=== PATIENT | male | born 1930 | race Caucasian/White ===

== ENCOUNTER 2018-01-16 23:05 | Inpatient (IN) | payer MEDICARE, OTHER ==
[~2018-01-16 23:05] MED LIST: ISOVUE-370 76%-LOCM 1 ML ONE
[2018-01-16 23:20] LABS: #Basophils 0.1 thou/uL (0.0-0.2); #Eosinphils 0.1 thou/uL (0.0-0.7); #Lymphocytes 1.8 thou/uL (1.20-3.40); #Monocytes 0.4 thou/uL (0.11-0.59); #Neutrophils 9.7 thou/uL (1.40-6.50); %Basophils 1.1 % (0.0-1.0); %Eosinophils 0.5 % (0.0-10.0); %Monocytes 3.3 % (0.0-10.0); %Neutrophils 80.1 % (42.0-75.0); Hemoglobin 14.9 g/dL (14.0-18.0); Mean Corpuscular HGB CONC 33.4 g/dL (32.0-36.0); Mean Corpuscular Volume 95.8 fl (80.0-94.0); Mean Platelet Volume 6.3 fL (7.4-10.4); Platelet Count 230 thou/uL (130-400); RBC Distribution Width 12.5 % (11.5-14.5); Red Blood Cell (RBC) Count 4.67 mill/uL (4.70-6.10); White Blood Cell (WBC) Count 12.1 thou/uL (4.8-10.8)
[2018-01-16 23:26] LABS: PTT 31.5 SEC (22.9-36.1); Prothrombin Time 13.3 SEC (12.0-14.7)
[2018-01-16 23:33] LABS: ALT (SGPT) 13 U/L (8-55); AST (SGOT) 17 U/L (5-34); Albumin 3.9 g/dL (3.4-4.8); Alkaline Phosphatase 53 U/L (40-150); Anion Gap 13 mmol/L (10-20); BUN (Urea Nitrogen) 22 mg/dL (8.4-25.7); Bilirubin, Total 0.6 mg/dL (0.2-1.2); Calc. Creatinine Clearance 0 mL/min (70-130); Calcium 8.6 mg/dL (7.8-10.44); Carbon Dioxide 24 mmol/L (23-31); Chloride 99 mmol/L (98-107); Estimated GFR-MDRD 70; Globulin 2.2 g/dL (2.4-3.5); Glucose 115 mg/dL (83-110); Potassium 3.4 mmol/L (3.5-5.1); Protein, Total 6.1 g/dL (5.8-8.1); Sodium 133 mmol/L (136-145)
[2018-01-16 23:38] LABS: CKMB 4.8 ng/mL (0-6.6); Troponin I 0.022 ng/mL (< 0.028)
[2018-01-16] MEDS ORDERED: niCARdipine 20MG In NaCl 20 MG/200 ML BAG ONE (23:50)
--- NOTE | 2018-01-16 23:56 | CT ---
CT OF THE BRAIN WITHOUT CONTRAST: 01/16/18 COMPARISON: None. HISTORY: Facial drooping and left sided weakness. Fall tonight. Patient is on blood thinners. TECHNIQUE: Multiple contiguous axial images were obtained in a CT of the brain without contrast. FINDINGS: There are scattered hypodensities in subcortical and periventricular white matter, likely secondary t o small vessel ischemic disease. No large confluent infarction is seen. There is no evidence of hydro cephalus, intracranial hemorrhage or extra-axial fluid collection. The calvarium and overlying soft tissues are unremarkable. The visualized paranasal sinuses and masto id air cells are well aerated. IMPRESSION: Small vessel ischemic disease without acute intracranial abnormality. Dr. Centeno notified of the findings at 11:21 p.m. on 01/16/18. POS: [facility]
--- NOTE | 2018-01-17 00:07 | RAD ---
SINGLE VIEW OF THE CHEST: 01/16/18 COMPARISON: None. HISTORY: Stroke. Left facial drooping and left sided weakness with slurred speech. FINDINGS: Single view of the chest shows a cardiomediastinal silhouette which is upper limits of normal in size . There is no evidence of consolidation, mass, or pleural effusion. Degenerative changes are seen in the spine. IMPRESSION: No evidence of acute cardiopulmonary disease. POS: [facility]
[2018-01-17 00:20] LABS: Acetaminophen Less than 6.0 mcg/mL (10.0-30.0); Alcohol Less than 10 mg/dL (Less than 10); Magnesium 2.1 mg/dL (1.6-2.6); Salicylate Less than 8.0 mg/dL (15.0-30.0)
--- NOTE | 2018-01-17 00:38 | CT ---
CTA OF THE NECK WITH CONTRAST CTA OF THE HEAD WITH CONTRAST CT PERFUSION OF THE HEAD/BRAIN 01/16/18 HISTORY: Facial drooping and left sided weakness. Fall tonight. Patient is on blood thinners. TECHNIQUE: 1. Multiple contiguous axial images were obtained in a CTA of the neck with contrast. Sagittal a nd coronal 3D MIP reformats were performed. 2. Multiple contiguous axial images were obtained in a CTA of the brain/head with contrast. Sagi ttal and coronal 3D MIP reformats were performed. 3. A CT perfusion was performed of the head. FINDINGS: CTA NECK: Moderate atherosclerotic disease is seen in the aorta with a small amount of atherosclerotic disease in the subclavian arteries. The bilateral common carotid artery showed no significant atherosclerotic disease. In the proximal right internal carotid artery approximately 1 cm distal to the bifurcation, there is a 6 mm area of either occlusion or severe high grade stenosis. there may be a small amount of blood flow along the anterior aspect of this areas of near complete occlusion. The more distal rig ht internal carotid artery is patent without significant atherosclerotic disease. There is a mild amount of atherosclerotic plaque in the left proximal internal carotid artery with es timated stenosis of less than 105 per NASCET criteria. The distal left cervical internal carotid radhika ry is unremarkable. Both cervical vertebral arteries are patent without significant narrowing. Mild a therosclerotic disease is seen in the mid portions of the vertebral arteries. No cervical adenopathy is seen. No mucosal abnormality is present. Degenerative changes are seen in t he spine. CTA HEAD: There is moderate to severe diffuse atherosclerotic disease in the cavernous portion of both internal carotid arteries. The intracranial internal carotid arteries show no significant atherosclerotic dis ease and branches into normal caliber anterior and middle cerebral arteries. There is no evidence of focal stenosis, occlusion or aneurysmal dilatation in the anterior circulation. The vessels in the le ft MCA distribution are more prominent than the right MCA distribution, although the vessels are stil l present on the right. Moderate atherosclerotic disease is seen in the intracranial vertebral arteries which form a normal a ppearing basilar artery. Posterior cerebral artery and cerebellar arteries are patent. There is no ev idence of focal stenosis, occlusion or aneurysmal dilatation in the posterior circulation. CT PERFUSION: In the inferior aspect of the right temporal lobe, there is increased mean transit time in decreased blood flow compared to the left. This also demonstrates increased blood volume as consistent with a l arge area of penumbra/ischemia. No other asymmetry is seen. IMPRESSION: No other asymmetry is seen. IMPRESSION: 1. There appears to be an area of occlusion in the proximal right internal carotid artery versus near complete occlusion. Flow is still seen in the distal aspect of the right internal carotid arter y. 2. There is no evidence of thrombosis intracranially, although the blood vessels are less promin ent in the right cerebral hemisphere compared to the left. 3. There is an abnormality on the perfusion exam and the inferior aspect of the right temporal l obe. This represents an area of ischemia/penumbra and may represent ischemia secondary to relatively diminished blood flow secondary to the abnormality in the internal carotid artery. Dr. Centeno notified of the findings at 11:46 p.m. on 01/16/18. POS: [facility]
[2018-01-17] MEDS ORDERED: Heparin 10,000 UNITS/1 ML VIAL ONE ×2 (00:46)
[2018-01-17 01:02] LABS: Bilirubin Negative (Negative); Blood, Urine Negative (Negative); Clarity CLEAR (Clear); Glucose, Urine (Dipstick) Negative (Negative); Leukocyte Negative (Negative); Nitrite Negative (Negative); Protein, Urine (Dipstick) Negative (Neg-Trace); Specific Gravity, Urine 1.021 (1.002-1.036); pH, Urine 7.5 (5.0-9.0)
[2018-01-17 01:09] LABS: Amphetamine Not Detected (NotDetected); Barbiturates Screen Not Detected (NotDetected); Benzodiazepine Screen Not Detected (NotDetected); Cocaine Metabolite Screen Not Detected (NotDetected); Medtox Control Line Valid? VALID (VALID); Medtox Reader # READER 1; Methadone Not Detected (NotDetected); Methamphetamine Not Detected (NotDetected); Opiate Screen Not Detected (NotDetected); Oxycodone Screen Not Detected (NotDetected); Phencyclidine (PCP) Not Detected (NotDetected); THC/Cannabinoid Screen Not Detected (NotDetected); Tricyclic Screen Not Detected (NotDetected)
[2018-01-17] MEDS ORDERED: Mag-Al 1200 mg/1200 mg/30 ML UDCUP PO PRN (01:44)
[2018-01-17] MEDS ORDERED: niCARdipine 20MG in NaCl 200 ML BAG IVPB PRN (01:44)
[2018-01-17] MEDS ORDERED: Acetaminophen 325 MG TAB PO PRN (01:44)
[2018-01-17] MEDS ORDERED: Labetalol HCl 100 MG/20 ML VIAL ONE (01:46)
[2018-01-17 02:16] LABS: #Basophils 0.1 thou/uL (0.0-0.2); #Lymphocytes 0.8 thou/uL (1.20-3.40); #Monocytes 0.3 thou/uL (0.11-0.59); #Neutrophils 9.9 thou/uL (1.40-6.50); %Basophils 0.5 % (0.0-1.0); %Eosinophils 0.1 % (0.0-10.0); %Lymphocytes 7.5 % (21.0-51.0); %Monocytes 2.7 % (0.0-10.0); %Neutrophils 89.2 % (42.0-75.0); Hemoglobin 15.1 g/dL (14.0-18.0); Mean Corpuscular HGB CONC 34.3 g/dL (32.0-36.0); Mean Corpuscular Hemoglobin 32.6 pg (27.0-31.0); Mean Corpuscular Volume 94.9 fl (80.0-94.0); Mean Platelet Volume 6.3 fL (7.4-10.4); Platelet Count 221 thou/uL (130-400); RBC Distribution Width 12.4 % (11.5-14.5); Red Blood Cell (RBC) Count 4.65 mill/uL (4.70-6.10); White Blood Cell (WBC) Count 11.1 thou/uL (4.8-10.8)
[2018-01-17 02:28] LABS: Anion Gap 15 mmol/L (10-20); BUN (Urea Nitrogen) 20 mg/dL (8.4-25.7); Calc. Creatinine Clearance 0 mL/min (70-130); Calcium 8.6 mg/dL (7.8-10.44); Carbon Dioxide 20 mmol/L (23-31); Chloride 98 mmol/L (98-107); Estimated GFR-MDRD 85; Glucose 145 mg/dL (83-110); Potassium 3.3 mmol/L (3.5-5.1); Sodium 130 mmol/L (136-145)
[2018-01-17] MEDS: Labetalol HCl 100 MG/20 ML VIAL SLOW IVP PRN (02:41)
[2018-01-17] MEDS ORDERED: Chloraseptic Spray 180 ml Bottle PO PRN (04:33)
[2018-01-17] MEDS ORDERED: Diabetic Tussin 200 MG/10 ML UDCUP PO PRN (04:33)
[2018-01-17] MEDS ORDERED: Eucerin (Mineral Oil/Petrolatum,White) 30 gm Jar TOP PRN (04:33)
[2018-01-17] MEDS ORDERED: Sodium Chloride 0.65% Nasal 44 ML BOT EA NARE PRN (04:33)
[2018-01-17] MEDS ORDERED: Loratadine 10 MG TAB PO PRN (04:33)
[2018-01-17] MEDS ORDERED: Senokot 8.6 MG TAB PO PRN (04:33)
[2018-01-17] MEDS ORDERED: Artificial Tears 18 DROP/0.9 ML EA EYE PRN (04:33)
[2018-01-17] MEDS ORDERED: Milk Of Magnesia 30 ML UDCUP PO PRN (04:33)
[2018-01-17 04:38] LABS: Cardiac Risk 3.8 (Less than 4.5)
[2018-01-17] MEDS: Sodium Chloride 0.9% 1,000 ML IV SCH ×2 (06:52→16:09)
[2018-01-17] MEDS: Famotidine/PF 20 mg/2ml Vial SLOW IVP SCH ×2 (08:40→20:54)
--- NOTE | 2018-01-17 08:55 | CT ---
PRELIMINARY REPORT/[facility]/EMERGENCY AFTER HOURS PROCEDURE: EXAM: CT Head Without Intravenous Contrast CLINICAL HISTORY: 87 years old, male; Condition or disease; Other: CVA; Patient HX: F/u CVA; S/P tpa TECHNIQUE: Axial computed tomography images of the head/brain without intravenous contrast. COMPARISON: CT Brain WO Con 2018-01-16 23:11 FINDINGS: Question faint residual contrast in the right basal ganglia images 20-21 Brain: Mild volume loss No hemorrhage. Mild white matter disease. No edema. Ventricles: Unremarkable. No ventriculomegaly. Bones/joints: Unremarkable. No acute fracture. Soft tissues: Unremarkable. Sinuses: Unremarkable as visualized. No acute sinusitis. Mastoid air cells: Unremarkable as visualized. No mastoid effusion. IMPRESSION: Question residual faint contrast in the right basal ganglia region No definite acute intracranial hemorrhage noted Thank you for allowing us to participate in the care of your patient. Dictated and Authenticated by: Vaughn Davis MD 01/17/2018 5:54 AM Central Time ([place] & [place]) FINAL REPORT: HEAD CT WITHOUT CONTRAST: Date: 01-17-18 Comparison: 01-16-18 History: Left sided weakness with facial droop, re-evaluate for possible acute infarction. FINDINGS: I agree with the preliminary [facility] report dictated by Dr. Vaughn Davis. Imaged paranasal sinuses/masto id air cells are well aerated. There is atherosclerotic calcification of the cavernous carotid arteri es and distal vertebral arteries. There is no displaced calvarial fracture. No intracranial hemorrhage, midline shift, or mass effect. Stable mild diffuse cerebral volume loss a nd prominence of the CSF containing spaces. IMPRESSION: No intracranial hemorrhage or large territorial infarction. Follow up imaging advised as clinically w arranted. POS: [facility]
[2018-01-17] MEDS ORDERED: Prevnar 13-Val Conj/PF 0.5 ML SYRINGE IM ONE (09:00)
[2018-01-17] MEDS ORDERED: FLU VACC TS2017-18 (>65YR) 0.5 ML SYRINGE IM ONE (09:00)
[2018-01-17] MEDS: niCARdipine HCl 25 MG in Sodium Chloride 0.9% 250 ML 240 ML IVPB PRN ×2 (10:42→20:52)
--- NOTE | 2018-01-17 14:55 | PRG ---
DATE OF SERVICE: 01/17/2018 SUBJECTIVE: Mr. Troncoso is an 87-year-old gentleman that presented with abrupt-onset dense hemiparesis and dysarthria. He had a noncontrast head CT performed in the ER, which was negative for hemorrhage . Subsequent to that, he had an intracranial CT angiogram performed, which was negative for occlusiv e disease. A CT angiogram of the neck, however, revealed a short segment occlusion versus short segm ent high-grade near occlusion at the takeoff the right internal carotid artery. The CT perfusion bienvenido dy suggested an area of ischemia with potentially salvageable brain. All the distal vasculature from the short segment occlusion fills normally. The patient has started receiving TPA. My plan is to bring him to the labor economist to image the carotid artery. If thrombus is present, we will perform a thrombectomy. Patient is an elderly and has highl y tortuous anatomy, therefore, I do have concerns about access. I discussed this with the family as well. Risks, benefits, and alternatives of the procedure discussed with the family and informed cons ent was provided.
[2018-01-17] MEDS ORDERED: Iopamidol 370 76% 100 ML VIAL ONE (15:09)
[2018-01-17] MEDS ORDERED: Potassium Chloride 40 MEQ in Sodium Chloride 0.9% 500 ML IVPB SCH (15:30)
--- NOTE | 2018-01-17 16:07 | CON ---
DATE OF CONSULTATION: 01/17/2018 ADMITTING PHYSICIAN: Dr. Andrea Crain. CONSULTED TEAM: Hospitalist Carmen Hernandez team for Medical management. HISTORY OF PRESENT ILLNESS: This is an 87-year-old male with history obtained from the nurse as the patient is nonverbal. History also obtained from ER documentation. The patient supposedly presented to the hospital with a left- sided facial droop, left-sided deficits. Per family, immediately prior to sleeping at night, post-dinner time, patient was brought to the hospital and was found to have left-sided facial droop as well as left-sided weakness and deficits. The patient had a CT scan of the brain done, which showed small vessel ischemic disease without any acute intracranial abnormalities. The patient also had a CT angiography performed, which showed occlusion of the proximal RCA, right internal carotid artery as well as almost complete occlusion of the right internal carotid artery. The patient was taken to the OR by Neurosurgery. Procedure report is pending. Patient at this point in time admitted to Neurosurgery team. Consult placed for Internal Medicine for medical management. No family at bedside. History again obtained from ER records and the nursing notes. ALLERGIES: No known drug allergies. PAST MEDICAL HISTORY: Per document review, positive for TIA, hyperlipidemia, hypertension, and coronary artery disease. SOCIAL HISTORY: Unavailable. PAST SURGICAL HISTORY: Unavailable. REVIEW OF SYSTEMS: Not possible given the patient's condition. MEDICATIONS: See MAR. PHYSICAL EXAMINATION: VITAL SIGNS: Blood pressure 157/60, O2 saturation 96% on 2 liters nasal cannula , respiratory rate of 23, heart rate of 83, temperature of 98. GENERAL: The patient is lying in bed, in no acute distress, resting comfortably. HEENT: Left-sided facial droop noted. Pupils equal, round, react to light and accommodation. Oral cavity moist and pink. NECK: Supple, mobile, nontender thyroid noted. Right-sided or left-sided carotid bruits not auscultated. LUNGS: Clear to auscultation bilaterally. No increase in AP diameter. Aerating well. CARDIOVASCULAR: Regular rate and rhythm. S1, S2, 2/6 systolic ejection murmur. ABDOMEN: Positive bowel sounds, soft, nontender. EXTREMITIES: 2+ peripheral pulses. No edema noted. NEUROLOGIC: Left-sided facial droop noted. Left-sided lower extremity immobile , right-sided lower extremity were rigid. Patient withdraws the pain, does not respond to tactile or verbal stimuli. LABORATORY DATA: CBC: Hemoglobin 15, WBC count of 11, platelet count of 221, hematocrit of 44. BMP: Sodium 130, potassium 3.3, chloride 98, bicarbonate 20 , creatinine 0.85, BUN of 20, glucose 145, triglycerides 50, cholesterol 225, LDL 155, HDL 60. UA negative. Drug screen negative for salicylates, opioids, oxycodone, methadone, propoxyphene, amphetamine, barbiturates, tricyclics, phencyclidine, cocaine, cannabis. Plasma alcohol less than 10. ASSESSMENT: 1. Cerebrovascular accident. 2. Right-sided internal carotid artery occlusion. 3. Hyperlipidemia. 4. Hypertension. 5. Hyponatremia secondary to free water excess. 6. Hypokalemia. PLAN: At this point in time, we will replace the patient's potassium. Target systolic blood pressure range of 160-180 for now. Tomorrow, we will target range of 140-160, Neurosurgery and Neurology also following. We will provide the patient with sequential compression devices for deep venous thrombosis prophylaxis and also provide the patient with Protonix IV for gastrointestinal prophylaxis. Aeration status is currently good on 2 liters nasal cannula. We will check an A1c to evaluate for possible status of diabetes and start the patient on sliding scale if A1c above 6.5. No family at bedside. Thank you very much for this consultation. We will follow very closely with you from Internal Medicine perspective and make changes as appropriate from Internal Medicine perspective. Case and plan discussed with nurse. Again, no family available. BONY
--- NOTE | 2018-01-17 16:29 | CCL ---
CARDIAC CATH: DATE: 01/17/18. SURGEONS: Dr. Crain, no assistant manager bilingual. INDICATION: Ischemic stroke. DIAGNOSIS: Intracerebral ischemia. PROCEDURE: Cervical carotid angiogram> ANESTHESIA: Local. TECHNIQUE: The patient was brought into the angiogram suite and placed on the table in supine position. Both gr oins were prepped and draped in usual sterile fashion. 1% lidocaine was administered. A 5 [place] mi cropuncture set was used to gain access to the right common femoral artery. A 6 [place] sheath was pl aced. The 6 [place] De La O-II catheter passed over an 0.035 angled Glidewire and was advanced into the aortic arch and the right common carotid artery was selectively catheterized. An AP and lateral ang iogram was performed of the cervical carotid, which revealed the presence of a high-grade stenosis wh ich did not appear to be flow limiting. There was distal filling of the remaining portion of the int ernal carotid artery. There is no obvious thrombus present. No interventional procedure was perform ed. The procedure came to an end without complication. IMPRESSION: The patient has a high-grade stenosis that does not appear to be flow limiting at the proximal aspect of the right internal carotid artery just beyond the bifurcation. The distal vessels fill normally. The patient's vasculature is highly tortuous. POS: [facility]
[2018-01-17] MEDS: Atorvastatin Calcium 40 MG TAB PO SCH (20:53)
--- NOTE | 2018-01-17 20:55 | CON ---
DATE OF CONSULTATION: 01/17/2018 REFERRING PROVIDER: Dr. Andrea Crain. REASON FOR CONSULTATION: Acute onset of left hemiparesis, status post IV tPA. HISTORY OF PRESENT ILLNESS: Mr. Troncoso is a pleasant 87-year-old male who has been consulted for evaluation of acute-onset left-sided weakness, stroke alert was initiated on admission to the ER. He is status post IV tPA. History is obtained from patient's medical chart, as patient is unable to provide, and there are no family members present at bedside. Apparently, patient was at home, had eaten his supper and had gone to take a nap. Few minutes later, patient's found him mcc on the bed and half on the floor. He was not able to move his left side. He was also noted to have left facial droop and difficulty with talking. His speech was also slurred. He was acting confused, which prompted them to call the EMS and patient was brought to the [place] [facility]. His symptoms have been present less than 4-1/[address] head without contrast on arrival, which showed no acute intracranial abnormality. At that point, IV tPA was given. Patient also had a CT angiogram of the head and neck and has undergone cerebral arteriogram with Dr. Crain who noted a high-grade stenosis of the right ICA without any flow limitation. Per nurse who is taking care of the patient, there has not been a significant improvement in his symptoms since being admitted to the hospital. Past medical history, past surgical history, social history, family history, current medications, and allergies could not be obtained. REVIEW OF SYSTEMS: Could not be performed. PHYSICAL EXAMINATION: VITAL SIGNS: Blood pressure of 169/63, pulse of 90, temperature of 97.7, respirations are 22, O2 sats of 95% on room air. GENERAL: Obtunded, male in no apparent distress. RESPIRATORY: Clear to auscultation bilaterally. CARDIOVASCULAR: Regular rate and rhythm. NEUROLOGIC: Mental status: Patient is drowsy appearing. He responds to verbal stimuli by responding to yes and no, but does not open his eyes and does not follow any commands. Cranial nerves: Pupils are 3 mm and reactive. Face appears symmetric. There is a left hemineglect. Motor exam showed flaccid left upper and left lower extremity. He has 0/5 strength in the left upper extremity and 2-3/5 strength in the left lower extremity. Sensory: He does not withdraw to pain on the left side. He has a left hemineglect. LABORATORY DATA: Reviewed, which included CBC, CMP, lipid profile, urinalysis, and urine drug screen, and plasma alcohol level which is significant for white cell count of 11.1. Sodium 130, potassium of 3.3, glucose of 145. CPK of 203, total cholesterol 225, LDL of 155, HDL of 60, triglycerides of 50, otherwise unremarkable. IMAGING STUDIES: CT head without contrast was reviewed, which showed no acute intracranial abnormality. CT angiogram of the head and neck and CT perfusion scan were reviewed, which showed occlusion or near occlusion of proximal right ICA. Cerebral arteriogram results were reviewed, which showed high-grade stenosis without any flow limitation in the right proximal ICA. IMPRESSION: 1. Acute right middle cerebral artery distribution ischemic infarct. 2. Left hemiparesis converted to #1. 3. Right internal carotid artery stenosis. 4. Hypertension. ASSESSMENT AND PLAN: Mr. Troncoso is a pleasant 87-year-old male who presented with an acute onset of left-sided weakness and dysarthria and left facial droop. On his exam, he is noted to have flaccid left upper and left lower extremity with very dysarthric speech. His symptoms are characteristic of right MCA distribution ischemic infarct. I will recommend obtaining MRI brain without contrast in the morning. Once he finishes 24 hours post-tPA, he is able to be transferred to the stroke unit for further care. I will recommend consulting PT, OT, speech therapy. We will initiate antiplatelet therapy 24-hour post-tPA. Continue supportive care. Continue current medical management. Thank you for consultation. BONY
[2018-01-18] MEDS: Sodium Chloride 0.9% 1,000 ML IV SCH ×2 (03:09→15:35)
--- NOTE | 2018-01-18 04:30 | CON ---
DATE OF CONSULTATION: 01/18/2018 Mr. Troncoso is an 87-year-old female. He presented with left hemiparesis. He received t-PA. He underwent a CT angiogram with Dr. Crain. He has noticed a high grade right internal carotid stenosis, but no flow limitation. He has not really improved much since admission to the hospital. He is a poor historian. PAST MEDICAL HISTORY: 1. Remarkable for TIA. 2. History of lipid disorder. 3. Hypertension. 4. History of coronary disease. Reviewing the old PCI records, he has not been admitted here. FAMILY HISTORY: Not obtainable from him. REVIEW OF SYSTEMS: Not obtainable. SOCIAL HISTORY: Not obtainable. PHYSICAL EXAMINATION: GENERAL: He awakens, but he mumbles mostly, he says ouch. VITAL SIGNS: He is afebrile, blood pressure 134/75, heart rates 91. He is on nasal cannula 2 liters a minute, oximetry is in the high 90s. HEENT: His pupils are reactive. EXTREMITIES: His left upper extremity is fairly rigid, but it drops to the bed if I lift it up. His left lower extremity moves intermittently. His right side appears to be unremarkable, although he has multiple abrasions and ecchymoses in both upper extremities and has multiple bruises on his chest wall. LUNGS: Clear. HEART: Regular rhythm. S1 and S2 are normal. Grade 2/6 systolic murmur. ABDOMEN: Soft and nontender. No guarding, no masses. LABORATORY: White count 11.1, hemoglobin 15.1, platelets 221. Sodium 130, potassium 3.3, chloride 98, bicarbonate 20, BUN 20, creatinine 0.85. IMPRESSION: 1. Cerebrovascular accident. 2. Advanced age with the clinical appearance of extreme deconditioning. PLAN: Continue current care. His code status definitely needs to be addressed. This is a 50 minutes consult greater than 50% of time was spent coordinating care on the unit. BONY
[2018-01-18 04:36] LABS: #Lymphocytes 1.2 thou/uL (1.20-3.40); #Monocytes 0.4 thou/uL (0.11-0.59); #Neutrophils 8.7 thou/uL (1.40-6.50); %Basophils 0.3 % (0.0-1.0); %Lymphocytes 11.6 % (21.0-51.0); %Monocytes 3.8 % (0.0-10.0); %Neutrophils 84.3 % (42.0-75.0); Hemoglobin 14.8 g/dL (14.0-18.0); Mean Corpuscular HGB CONC 34.9 g/dL (32.0-36.0); Mean Corpuscular Volume 94.5 fl (80.0-94.0); Platelet Count 234 thou/uL (130-400); RBC Distribution Width 12.5 % (11.5-14.5); Red Blood Cell (RBC) Count 4.47 mill/uL (4.70-6.10); White Blood Cell (WBC) Count 10.3 thou/uL (4.8-10.8)
[2018-01-18 05:02] LABS: ALT (SGPT) 23 U/L (8-55); AST (SGOT) 66 U/L (5-34); Albumin 3.7 g/dL (3.4-4.8); Alkaline Phosphatase 52 U/L (40-150); Anion Gap 12 mmol/L (10-20); BUN (Urea Nitrogen) 27 mg/dL (8.4-25.7); Bilirubin, Total 1.8 mg/dL (0.2-1.2); Calc. Creatinine Clearance 57 mL/min (70-130); Calcium 8.5 mg/dL (7.8-10.44); Carbon Dioxide 18 mmol/L (23-31); Cardiac Risk 3.8 (Less than 4.5); Chloride 108 mmol/L (98-107); Cholesterol 207 mg/dl (< 200 Desired); Estimated GFR-MDRD 88; Globulin 2.3 g/dL (2.4-3.5); Glucose 143 mg/dL (83-110); HDL Cholesterol 55 mg/dL (>60 Neg Risk); LDL Cholesterol, Calculated 133 mg/dL; Potassium 3.3 mmol/L (3.5-5.1); Sodium 135 mmol/L (136-145); Triglycerides 94 mg/dL (Less than 150)
[2018-01-18] MEDS: niCARdipine HCl 25 MG in Sodium Chloride 0.9% 250 ML 240 ML IVPB PRN (05:14)
[2018-01-18 05:19] LABS: Syphilis Antibody Nonreactive (Nonreactive); Syphilis Antibody Index 0.05 S/CO (<1.00 Non-Reactive)
[2018-01-18] MEDS: Enoxaparin Sodium 30 MG/0.3 ML SYRINGE SC SCH (09:34)
[2018-01-18] MEDS: Aspirin 325 mg Enteric Coated Tablet PO SCH (09:34)
[2018-01-18] MEDS: Famotidine/PF 20 mg/2ml Vial SLOW IVP SCH (09:34)
[2018-01-18] MEDS: Aspirin 300 MG Suppository PR SCH (09:41)
[2018-01-18 13:34] LABS: Hemoglobin A1c 5.2 % (4.0-6.0)
--- NOTE | 2018-01-18 13:39 | PDOC.PN ---
- Subjective Encounter Start Date: 01/18/18 Encounter Start Time: 13:37 Patient seen and examined, no new issues, patient now DNR/DNI, no family at bedside - Objective Resuscitation Status: Resuscitation Status DNR:Do Not Resuscitate Vital Signs & Weight: Vital Signs (12 hours) Temp Pulse Resp Pulse Ox 01/18/18 11:00 98.2 F 01/18/18 07:58 98.2 F 88 24 H 96 01/18/18 07:22 98 01/18/18 07:00 98.2 F 01/18/18 04:00 98.3 F Weight Admit Weight 145 lb Weight 141 lb 12.116 oz Most Recent Monitor Data Heart Rate from ECG 94 NIBP 142/88 NIBP BP-Mean 94 Respiration from ECG 20 SpO2 98 I&O: 01/17/18 01/18/18 01/19/18 06:59 06:59 06:59 Intake Total 341 2899 Output Total 0 1 Balance 341 2898 Result Diagrams: 01/18/18 03:45 01/18/18 03:45 Phys Exam - Physical Examination Constitutional: NAD HEENT: PERRLA, moist MMs, sclera anicteric left sided facial droop Neck: no nodes, no JVD, supple Respiratory: no wheezing, no rales, no rhonchi Cardiovascular: RRR, no significant murmur, no rub Gastrointestinal: soft, non-tender, no distention Musculoskeletal: no edema, pulses present patient not talking much, left lower extremity immobile left sided deficits Dx/Plan (1) CVA (cerebral vascular accident) Code(s): I63.9 - CEREBRAL INFARCTION, UNSPECIFIED Status: Acute (2) HTN (hypertension) Code(s): I10 - ESSENTIAL (PRIMARY) HYPERTENSION Status: Acute (3) Aphasia Code(s): R47.01 - APHASIA Status: Acute (4) Weakness Code(s): R53.1 - WEAKNESS Status: Acute - Plan * Agree with DNR/DNI status * repeat CT in AM or MRI to confirm if stroke present or not * patient appears to have poor prognosis, neurology and neuro surgery also following * will await image studies once available * labs in AM * BP stable * pain control * no family at bedside
[2018-01-18] MEDS: Labetalol HCl 100 MG/20 ML VIAL SLOW IVP PRN (18:12)
--- NOTE | 2018-01-18 19:12 | PRG ---
DATE OF SERVICE: 01/18/2018 SUBJECTIVE: Mr. Troncoso will awaken. He is extremely hard of hearing. I met with his and his daughter at the bedside and had a lengthy discussion with them. Apparently, he has actually been quite functional from a cognitive standpoint leading up to this. He was excited about vending machine attendant's baseball season starting. Today, when his vending machine attendant came to the room, he reminded his vending machine attendant not to have two Monday services because last , they only had 11 at 1 service and 14 at the other service, so I do not think there are any issues of dementia here leading up to this. He still has left hemiplegia. Bedside swallowing evaluation was suggestive of him tolerating pureed and thickened food. OBJECTIVE: VITAL SIGNS: His vital signs have been stable. His heart rates in 80s, blood pressure 160/81, respiratory 26, oximetry is 99. LUNGS: Clear currently. HEART: Regular rhythm. ABDOMEN: Soft. LABORATORY DATA: White count is 10.3, hemoglobin 14.8, platelets 234,000. Sodium 135, potassium 3.3, chloride 108, bicarbonate 18, BUN 27, creatinine 0.8 , bilirubin is 1.8, AST 66, ALT is 23. Globulin is 2.3. IMPRESSION: Thrombotic cerebrovascular, probably needs another noncontrast CT to better define the CT of the cerebrovascular accident. An MRI was contemplated, but per the neurologist's note, but I do not think he will hold still for an MRI and I had certainly do not want to sedate this 87- year-old man to get an MRI for curiosity sake. He needs to stay in the Critical Care Unit. The family wants no tube feedings. The daughter and firmly they dont even want a Dobbhoff tube. They want him to be a do not resuscitate status, but they also want to begin working on placement hoping that he will gradually improve to a functional port. He has never wanted to be in a correction or kept in some type of long- term care facility. [facility]
[2018-01-18] MEDS ORDERED: Famotidine 40 MG/4 ML VIAL SLOW IVP SCH (22:30)
[2018-01-18] MEDS: Atorvastatin Calcium 40 MG TAB PO SCH (22:41)
[2018-01-19 04:13] LABS: #Basophils 0.1 thou/uL (0.0-0.2); #Lymphocytes 1.2 thou/uL (1.20-3.40); #Monocytes 0.4 thou/uL (0.11-0.59); #Neutrophils 7.4 thou/uL (1.40-6.50); %Basophils 0.7 % (0.0-1.0); %Eosinophils 0.3 % (0.0-10.0); %Lymphocytes 12.9 % (21.0-51.0); %Monocytes 4.2 % (0.0-10.0); %Neutrophils 81.9 % (42.0-75.0); Hemoglobin 13.5 g/dL (14.0-18.0); Mean Corpuscular Hemoglobin 33.4 pg (27.0-31.0); Mean Corpuscular Volume 95.3 fl (80.0-94.0); Mean Platelet Volume 6.8 fL (7.4-10.4); Platelet Count 195 thou/uL (130-400); RBC Distribution Width 12.5 % (11.5-14.5); Red Blood Cell (RBC) Count 4.05 mill/uL (4.70-6.10)
[2018-01-19 04:50] LABS: Anion Gap 11 mmol/L (10-20); BUN (Urea Nitrogen) 24 mg/dL (8.4-25.7); Calc. Creatinine Clearance 67 mL/min (70-130); Calcium 8.3 mg/dL (7.8-10.44); Carbon Dioxide 21 mmol/L (23-31); Chloride 109 mmol/L (98-107); Estimated GFR-MDRD Greater than 90; Glucose 99 mg/dL (83-110); Potassium 3.2 mmol/L (3.5-5.1); Sodium 138 mmol/L (136-145)
--- NOTE | 2018-01-19 08:34 | CT ---
PRELIMINARY REPORT/[facility]/EMERGENCY AFTER HOURS PROCEDURE: EXAM: CT Head Without Intravenous Contrast CLINICAL HISTORY: Acute Stroke; S/P tpa 2 days ago TECHNIQUE: Axial computed tomography images of the head/brain without intravenous contrast. COMPARISON: CT Brain WO Con 2018-01-17 05:05 FINDINGS: Brain: Interval development of acute right sided infarcts involving the high, posterior lateral parietal reg ion, caudate head, glbous pallidus, and putamen. No acute left sided infarct visualized. No hemorrhag e. No appreciable mass effect. There is global and diffuse parenchymal volume loss. There are scattered foci of decreased attenuatio n in the periventricular and subcortical white matter, nonspecific, but most consistent with chronic small vessel ischemic changes in patient of this age. Ventricles / cisterns / extra-axial spaces: There is no hydrocephalus, midline shift, or acute extra-axial fluid collection. There is no sulcal e ffacement. Sinuses: No findings of acute sinusitis or suspicious sinus mass. Bone: No acute fracture or displacement. Impression: Acute multifocal right sided infarcts are now visible. No hemorrhage. Thank you for allowing us to participate in the care of your patient. Dictated and Authenticated by: Julisa Orellana MD 01/19/2018 6:11 AM Central Time ([place] & [place]) FINAL REPORT HEAD CT NONCONTRAST: Date: 01/19/18 FINDINGS/IMPRESSION: I agree with the above provided preliminary interpretation from [facility]. Multifocal recent infarctions involving the right cerebral hemisphere which involve the deep may nuc lei, as well as parietal and temporoparietal region of the right cerebral hemisphere. Subtle involvem ent also suggested at the right frontal lobe. POS: [facility]
[2018-01-19] MEDS ORDERED: Famotidine 40 MG/4 ML VIAL SLOW IVP SCH (09:00)
[2018-01-19] MEDS: Sodium Chloride 0.9% 1,000 ML IV SCH (09:02)
[2018-01-19] MEDS: Enoxaparin Sodium 30 MG/0.3 ML SYRINGE SC SCH (09:02)
[2018-01-19] MEDS: Aspirin 325 mg Enteric Coated Tablet PO SCH (09:02)
[2018-01-19] MEDS: Aspirin 300 MG Suppository PR SCH (09:02)
[2018-01-19] MEDS: Famotidine/PF 20 mg/2ml Vial SLOW IVP SCH (09:30)
[2018-01-19] MEDS ORDERED: Potassium Chloride 40 MEQ in Sodium Chloride 0.9% 250 ML 250 ML IVPB SCH ×2 (11:00→15:00)
--- NOTE | 2018-01-19 14:22 | PDOC.PN ---
- Subjective Encounter Start Date: 01/19/18 Encounter Start Time: 14:20 Patient seen and examined, daughter at bedside, all questions answered, no new issues. - Objective Resuscitation Status: Resuscitation Status DNR:Do Not Resuscitate Vital Signs & Weight: Vital Signs (12 hours) Temp Pulse Ox 01/19/18 12:00 97.9 F 01/19/18 08:38 100 01/19/18 07:00 98.1 F 01/19/18 04:00 99.1 F Weight Admit Weight 145 lb Weight 149 lb 4.047 oz Most Recent Monitor Data Heart Rate from ECG 87 NIBP 137/87 NIBP BP-Mean 100 Respiration from ECG 21 SpO2 97 I&O: 01/18/18 01/19/18 01/20/18 06:59 06:59 06:59 Intake Total 2899 1715 Output Total 1 800 2 Balance 2898 915 -2 Result Diagrams: 01/19/18 04:01 01/19/18 04:01 Phys Exam - Physical Examination Constitutional: NAD HEENT: PERRLA, moist MMs, sclera anicteric very hard of hearing Neck: no nodes, no JVD, supple Respiratory: no wheezing, no rales, no rhonchi Cardiovascular: RRR S1 and S2, 2/6 THOR Gastrointestinal: soft, non-tender, no distention Musculoskeletal: no edema, pulses present AAO X person only, Left sided residual defects Dx/Plan (1) CVA (cerebral vascular accident) Code(s): I63.9 - CEREBRAL INFARCTION, UNSPECIFIED Status: Acute (2) HTN (hypertension) Code(s): I10 - ESSENTIAL (PRIMARY) HYPERTENSION Status: Acute (3) Aphasia Code(s): R47.01 - APHASIA Status: Acute (4) Weakness Code(s): R53.1 - WEAKNESS Status: Acute - Plan * DNR/DNI, transfer to stroke * after a long discussion with daughter, she is agreeable to talk to palliative/ hospice care to gather more treatment options for the patient, she is currently NOT making the patient hospice but is interested in obtaining information * PEG tube currently being discussed between family, will await their decision * continue current plan of care with no changes * case and plan d/w patient's daughter at length, she understands and agrees with this plan
--- NOTE | 2018-01-19 15:33 | PRG ---
DATE OF SERVICE: 01/19/2018 SERVICE: Pulmonary Medicine. INTERVAL HISTORY: The patient is doing fine from a respiratory standpoint. He remains on room air. He seems to be clearing his airway for the most part. He takes a very small amount of p.o. Otherwi se, there has been no interval change to his condition. The family is trying to decide on whether or not to pursue PEG tube placement. He is following some simple commands. He will spontaneously move the right side of his body and his left leg. His left arm does not really move. He does have some withdrawal from noxious stimuli there however. PHYSICAL EXAMINATION: VITAL SIGNS: Afebrile, pulse is 87, blood pressure 137/87, respirations 21, saturation 97% on room a ir. GENERAL: The patient is somnolent. He remains encephalopathic. HEENT: Normocephalic, atraumatic. Sclerae are white, conjunctivae pink. Oral and nasal mucosa is m oist without lesions. LUNGS: Decent air entry. Minimal rhonchi are present. No crackles or wheezing are appreciated. HEART: Normal rate, regular. ABDOMEN: Soft, nontender, nondistended. Bowel sounds are positive. MUSCULOSKELETAL: No cyanosis or clubbing. There is no pitting in the bilateral lower extremities. NEUROLOGIC: Grossly nonfocal. LABORATORY DATA: WBC 9.0, hemoglobin 13.5, platelets 195,000. Potassium 3.2. Basic metabolic profi le is otherwise unremarkable. Urinalysis is unremarkable. Urine drug screen is negative. Syphilis is nonreactive. IMAGING: CT of the brain demonstrates acute multifocal right-sided infarct without any obvious hemor rhage. ASSESSMENT: 1. Cerebrovascular accident on the right, multifocal. 2. Debility secondary to stroke. PLAN: The patient is hemodynamically and neurologically stable since he has been in the hospital. A s such, we will proceed with transitioning him over to the stroke unit. He is at increased risk for aspiration related disease, but has been made a DNI/DNR. Hopefully, he will continue to improve some neurologic function moving forward. We will need to determine whether or not feeding tube is indica kelsey in this patient. Potassium will be replaced today.
[2018-01-19] MEDS: Labetalol HCl 100 MG/20 ML VIAL SLOW IVP PRN (20:11)
[2018-01-19] MEDS: Atorvastatin Calcium 40 MG TAB PO SCH (20:19)
[2018-01-20] MEDS: Sodium Chloride 0.9% 1,000 ML IV SCH ×3 (02:30→15:49)
[2018-01-20] MEDS: Labetalol HCl 100 MG/20 ML VIAL SLOW IVP PRN ×3 (03:33→15:45)
[2018-01-20] MEDS: Aspirin 300 MG Suppository PR SCH (09:28)
[2018-01-20] MEDS: Aspirin 325 mg Enteric Coated Tablet PO SCH (09:28)
[2018-01-20] MEDS: Enoxaparin Sodium 30 MG/0.3 ML SYRINGE SC SCH (09:29)
[2018-01-20] MEDS: hydrALAZINE 20 MG/ML VIAL SLOW IVP PRN (09:34)
--- NOTE | 2018-01-20 13:47 | PDOC.PN ---
- Subjective Encounter Start Date: 01/20/18 Encounter Start Time: 13:45 Patient seen and examined, family at bedside, no changes in status per nursing staff, all questions answered. - Objective Resuscitation Status: Resuscitation Status DNR:Do Not Resuscitate Vital Signs & Weight: Vital Signs (12 hours) Temp Pulse Pulse Resp BP BP BP 01/20/18 12:39 147/67 H 01/20/18 11:57 97.8 F 92 20 214/88 H 01/20/18 11:20 84 01/20/18 10:14 87 169/81 H 01/20/18 09:34 84 01/20/18 09:16 01/20/18 08:00 99.3 F 84 20 182/102 H 01/20/18 04:00 98.2 F 99 22 H 140/104 H 01/20/18 03:33 99 199/103 H Pulse Ox 01/20/18 12:39 01/20/18 11:57 95 01/20/18 11:20 01/20/18 10:14 01/20/18 09:34 01/20/18 09:16 98 01/20/18 08:00 98 01/20/18 04:00 90 L 01/20/18 03:33 Weight Admit Weight 145 lb Weight 148 lb Most Recent Monitor Data Heart Rate from ECG 83 NIBP 153/100 NIBP BP-Mean 111 Respiration from ECG 26 SpO2 100 I&O: 01/19/18 01/20/18 01/21/18 06:59 06:59 06:59 Intake Total 1715 1963 Output Total 800 3 Balance 915 1960 Result Diagrams: 01/19/18 04:01 01/19/18 04:01 Phys Exam - Physical Examination Constitutional: NAD HEENT: PERRLA, moist MMs, sclera anicteric left sided facial droop Neck: no nodes, no JVD Respiratory: no wheezing, no rales Cardiovascular: RRR, no significant murmur, no rub Gastrointestinal: soft, non-tender, no distention Musculoskeletal: pulses present, edema present (trace) left sided weakness, responds to loud verbal stimuli Dx/Plan (1) CVA (cerebral vascular accident) Code(s): I63.9 - CEREBRAL INFARCTION, UNSPECIFIED Status: Acute (2) HTN (hypertension) Code(s): I10 - ESSENTIAL (PRIMARY) HYPERTENSION Status: Acute (3) Aphasia Code(s): R47.01 - APHASIA Status: Acute (4) Weakness Code(s): R53.1 - WEAKNESS Status: Acute - Plan * Family deciding between PEG placement vs hospice care, state they will have a decision by tomorrow * continue current plan of care otherwise with no changes * case and plan d/w patient's family at length, they understand and agree with this plan * Will follow with you and make changes as appropriate from a renal perspective
--- NOTE | 2018-01-20 20:13 | PRG ---
DATE OF SERVICE: 01/20/2018 SERVICE: Pulmonary Medicine. INTERVAL HISTORY: The patient is doing okay from a respiratory standpoint. His breathing is unlabor ed. There were no events reported. There has been no significant change to his neurologic status. PHYSICAL EXAMINATION: VITAL SIGNS: Afebrile, pulse 86, blood pressure 178/79, respirations 20, saturation 96% on room air. GENERAL: The patient is somnolent. He wakes up, but he has dense hemiplegia. HEENT: Normocephalic, atraumatic. Sclerae are white, conjunctivae pink. Oral and nasal mucosa is m oist without lesions. LUNGS: Decent air entry. There is no prolonged expiratory phase. Rhonchi are present. No wheezing or crackles are appreciated. HEART: Normal rate, regular. ABDOMEN: Soft, nontender, nondistended. Bowel sounds are positive. MUSCULOSKELETAL: No cyanosis or clubbing. There is no pitting in the bilateral lower extremities. LABORATORY DATA: WBC 9.0, hemoglobin 13.5, platelets 195,000. Potassium 3.2. Basic metabolic profi le is otherwise unremarkable. ASSESSMENT: 1. Cerebrovascular accident on the right, multifocal. 2. Severe debility secondary to stroke. 3. Severe protein calorie malnutrition. 4. Hypokalemia. PLAN: I will provide the patient a dose of potassium. We will check magnesium with phosphorus tomor row morning. The family is deciding about whether or not to proceed with PEG tube versus transition over to comfort care only. Pulmonary or Critical Care will continue to follow, intermittently during this hospital stay. Please call if the patient has a more abrupt decompensation in his breathing an d the family wants to be more aggressive.
[2018-01-20] MEDS: Potassium Chloride 40 MEQ in Sodium Chloride 0.9% 250 ML 250 ML IVPB SCH (20:24)
[2018-01-20] MEDS: Atorvastatin Calcium 40 MG TAB PO SCH (20:25)
[2018-01-21] MEDS ORDERED: Metoprolol Tartrate 25 MG TAB PO SCH (00:15)
[2018-01-21] MEDS: Potassium Chloride 40 MEQ in Sodium Chloride 0.9% 250 ML 250 ML IVPB SCH (00:38)
[2018-01-21] MEDS: Labetalol HCl 100 MG/20 ML VIAL SLOW IVP PRN ×4 (05:11→23:39)
[2018-01-21 06:16] LABS: Anion Gap 13 mmol/L (10-20); BUN (Urea Nitrogen) 23 mg/dL (8.4-25.7); Calc. Creatinine Clearance 75 mL/min (70-130); Calcium 8.2 mg/dL (7.8-10.44); Carbon Dioxide 19 mmol/L (23-31); Chloride 112 mmol/L (98-107); Estimated GFR-MDRD Greater than 90; Glucose 80 mg/dL (83-110); Magnesium 2.2 mg/dL (1.6-2.6); Phosphorus 2.2 mg/dL (2.3-4.7); Potassium 3.6 mmol/L (3.5-5.1); Sodium 140 mmol/L (136-145)
[2018-01-21] MEDS: Sodium Chloride 0.9% 1,000 ML IV SCH ×3 (07:21→19:35)
[2018-01-21] MEDS: Aspirin 325 mg Enteric Coated Tablet PO SCH ×2 (08:44→09:54)
[2018-01-21] MEDS: Enoxaparin Sodium 30 MG/0.3 ML SYRINGE SC SCH ×2 (08:44→11:54)
[2018-01-21] MEDS: Metoprolol Tartrate 25 MG TAB PO SCH ×3 (08:44→22:08)
[2018-01-21] MEDS: Aspirin 300 MG Suppository PR SCH (09:26)
--- NOTE | 2018-01-21 10:37 | RAD ---
CHEST 1 VIEW: HISTORY: Altered mental status. COMPARISON: Chest radiograph 01/16/18. FINDINGS: New right basilar airspace opacity somewhat linear in appearance is present. Lungs are hypoinflated. No pneumothorax. No large effusion. IMPRESSION: No acute osseous abnormality. Old left-sided rib fractures. IMPRESSION: New linear opacity in the right lung base suggestive of atelectasis. Followup can be obtained. The remainder of the findings are unchanged. POS: [facility]
--- NOTE | 2018-01-21 12:06 | PDOC.PN ---
- Subjective Encounter Start Date: 01/21/18 Encounter Start Time: 12:04 Patient seen and examined, no changes in clinical status for now, family at bedside, all questions answered. - Objective Resuscitation Status: Resuscitation Status DNR:Do Not Resuscitate Vital Signs & Weight: Vital Signs (12 hours) Temp Pulse Resp BP BP Pulse Ox 01/21/18 10:34 153/89 H 01/21/18 08:45 73 01/21/18 08:00 98.5 F 73 16 178/84 H 95 01/21/18 05:11 88 179/95 H 01/21/18 03:02 98.5 F 88 20 179/95 H 95 Weight Admit Weight 145 lb Weight 144 lb 3 oz Most Recent Monitor Data Heart Rate from ECG 83 NIBP 153/100 NIBP BP-Mean 111 Respiration from ECG 26 SpO2 100 I&O: 01/20/18 01/21/18 01/22/18 06:59 06:59 06:59 Intake Total 1963 Output Total 3 Balance 1960 Result Diagrams: 01/19/18 04:01 01/21/18 05:02 Phys Exam - Physical Examination Constitutional: NAD HEENT: PERRLA, moist MMs, sclera anicteric Neck: no nodes, no JVD coarse breath sounds Cardiovascular: RRR, no significant murmur Gastrointestinal: soft, non-tender, no distention Musculoskeletal: no edema, pulses present Dx/Plan (1) CVA (cerebral vascular accident) Code(s): I63.9 - CEREBRAL INFARCTION, UNSPECIFIED Status: Acute (2) HTN (hypertension) Code(s): I10 - ESSENTIAL (PRIMARY) HYPERTENSION Status: Acute (3) Aphasia Code(s): R47.01 - APHASIA Status: Acute (4) Weakness Code(s): R53.1 - WEAKNESS Status: Acute - Plan * Patient remains DNR/DNI * Family state they will decide by tmrw if they want PEG placement or hospice * no changes in plan of care for now * will apply a clonidine patch for high BP * swallowing remains a major issue * case and plan d/w patient's family member at bedside, nurse present in room, family understands and agrees with above plan
[2018-01-21] MEDS ORDERED: Fleet Enema 133 ML BOT PR SCH (18:15)
[2018-01-21] MEDS ORDERED: Potassium Phosphate 30 MMOL in Sodium Chloride 0.9% 500 ML IVPB SCH (18:30)
--- NOTE | 2018-01-21 18:32 | PRG ---
DATE OF SERVICE: 01/21/2018 SERVICE: Pulmonary Medicine. INTERVAL HISTORY: The patient is doing good from a respiratory standpoint. His biggest complaint is abdominal distention and pain. It feels like he needs to have a bowel movement. Otherwise, there h as been no interval change to his condition. His family was feeding him at bedside. He coughs with nearly every bite that he takes. I have told him that this would suggest that he is aspirating. I w ould like for them to back way off on how much p.o. they are giving him. I do not want him to provid e him with any solid consistencies for the time being. He will need to work with Speech Pathology ve ry closely. PHYSICAL EXAMINATION: VITAL SIGNS: Afebrile, pulse 76, blood pressure 186/104, respirations 16, saturation 95% on room air . GENERAL: The patient is awake, alert, in no apparent distress. LUNGS: Decent air entry. There is no prolonged expiratory phase or wheezing. HEART: Normal rate, regular. ABDOMEN: Soft, nontender, nondistended. Bowel sounds are positive. MUSCULOSKELETAL: No cyanosis or clubbing. No pitting in the bilateral lower extremities. LABORATORY DATA: Phosphorus 2.2, magnesium 2.2, potassium 3.6. Basic metabolic profile is otherwise unremarkable. Sodium is up trending gently. IMAGING: Chest x-ray demonstrates right lung atelectasis and inflammatory changes, small lung volume s. ASSESSMENT: 1. Cerebrovascular accident on the right, multifocal. 2. Severe debility secondary to stroke. 3. Oropharyngeal dysphagia. 4. Aspiration pneumonitis. 5. Severe protein calorie malnutrition. 6. Hypokalemia. PLAN: We will give the patient a dose of potassium phosphate. The patient's family is trying to dec brett whether or not to pursue PEG tube moving forward. Pulmonary or Critical Care will continue to fo llow. The patient is at extraordinarily high risk of developing infectious process in the lung becau se he has a hard time swallowing or protecting his airway. Thankfully, he does have a decent cough. If he spikes a fever, empiric antibiotics directed at lung pathology should be considered.
[2018-01-21] MEDS: Atorvastatin Calcium 20 MG TAB PO SCH (22:06)
[2018-01-21] MEDS: Sodium Chloride 0.45% 1,000 ML IV SCH (22:07)
[2018-01-22 06:53] LABS: Anion Gap 12 mmol/L (10-20); BUN (Urea Nitrogen) 25 mg/dL (8.4-25.7); Calc. Creatinine Clearance 75 mL/min (70-130); Calcium 7.9 mg/dL (7.8-10.44); Carbon Dioxide 19 mmol/L (23-31); Chloride 113 mmol/L (98-107); Estimated GFR-MDRD Greater than 90; Glucose 92 mg/dL (83-110); Phosphorus 4.5 mg/dL (2.3-4.7); Potassium 3.7 mmol/L (3.5-5.1); Sodium 140 mmol/L (136-145)
[2018-01-22] MEDS: Labetalol HCl 100 MG/20 ML VIAL SLOW IVP PRN (06:55)
[2018-01-22] MEDS: Sodium Chloride 0.45% 1,000 ML IV SCH ×2 (08:27→14:12)
--- NOTE | 2018-01-22 09:04 | RAD ---
LEFT HAND 3 VIEWS: INDICATION: Fall, injury. FINDINGS: There is a postoperative plate and screw fixation traversing the distal forearm carpus and proximal l eft hand partially imaged. There is prominent osseous hypertrophy and degenerative change of the wri st and base of hand. There is a radiopaque linear density projecting at the soft tissues interposed between the 2nd and 3rd MCP joints suspicious for a foreign body, age indeterminate on the basis of t his exam. There is also a linear radiopaque density overlying the medial aspect of the carpus. No acute fracture is seen. There is vascular calcification. IMPRESSION: 1. Foreign body suspected interposed between the 2nd and 3rd rays, age indeterminate. Suspicious fo r foreign body is not provided on the clinical request. Recommend correlation with the history and p hysical exam and, as necessary, imaging followup. 2. There is an additional radiopaque thin layer density overlying the medial aspect of the carpus ad jacent surgical hardware. 3. Prominent arthropathy of the left wrist and base of hand. POS: [facility]
[2018-01-22] MEDS: Enoxaparin Sodium 30 MG/0.3 ML SYRINGE SC SCH (09:30)
[2018-01-22] MEDS: Metoprolol Tartrate 25 MG TAB PO SCH ×2 (09:30→22:27)
[2018-01-22] MEDS: Aspirin 325 mg Enteric Coated Tablet PO SCH (09:30)
[2018-01-22] MEDS: Aspirin 300 MG Suppository PR SCH (09:30)
[2018-01-22] MEDS: hydrALAZINE 20 MG/ML VIAL SLOW IVP PRN (15:52)
[2018-01-22] MEDS: Ketorolac Tromethamine 30 MG/ML VIAL IVP PRN (17:40)
--- NOTE | 2018-01-22 19:49 | PDOC.PN ---
- Subjective Encounter Start Date: 01/22/18 Encounter Start Time: 19:45 Subjective: f/u for acute R MCA territorial ischemic CVA with L hemiparesis, dysphagia -: with planned PEG tube placement in am. c/o LLE calf pain, tenderness -: no trauma but initally admitted 01/17/18. - Objective Resuscitation Status: Resuscitation Status DNR:Do Not Resuscitate MAR Reviewed: Yes Vital Signs & Weight: Vital Signs (12 hours) Temp Pulse Resp BP BP BP Pulse Ox 01/22/18 19:27 98.9 F 93 24 H 165/90 H 95 01/22/18 17:17 88 176/87 H 01/22/18 15:52 82 214/98 H 01/22/18 15:46 98.2 F 82 20 214/98 H 95 01/22/18 11:53 97.4 F L 91 20 189/69 H 68 L 01/22/18 08:00 97.4 F L 107 H 20 168/81 H 96 Weight Admit Weight 145 lb Weight 160 lb 4 oz Most Recent Monitor Data Heart Rate from ECG 83 NIBP 153/100 NIBP BP-Mean 111 Respiration from ECG 26 SpO2 100 I&O: 01/21/18 01/22/18 01/23/18 06:59 06:59 06:59 Intake Total 1250 Balance 1250 Result Diagrams: 01/19/18 04:01 01/22/18 05:28 Radiology Reviewed by me: Yes (LLE sono - no DVT on limited exam, +hydrocele in L scrotum) EKG Reviewed by me: Yes (Tele - SR) Phys Exam - Physical Examination Constitutional: NAD sleepy HEENT: PERRLA, oral pharynx no lesions Neck: no JVD, supple few basilar coarse sounds Respiratory: no wheezing Cardiovascular: RRR Gastrointestinal: soft, non-tender, no distention, positive bowel sounds mild TTP L calf region Musculoskeletal: no edema, pulses present L hemiparesis, dysarthria, dysphagia Skin: normal turgor, cap refill <2 seconds Dx/Plan (1) Cerebrovascular accident (CVA) involving right middle cerebral artery territory Code(s): I63.511 - CEREB INFRC D/T UNSP OCCLS OR STENOS OF RIGHT MID CEREB ART Status: Acute Comment: ASA 325mg daily, Lipitor, stroke protocol, s/p tPa (2) Acute left hemiparesis Code(s): G81.94 - HEMIPLEGIA, UNSPECIFIED AFFECTING LEFT NONDOMINANT SIDE Status: Acute Comment: PT/OT for mobilization, likely rehab on d/c (3) Dysphagia Code(s): R13.10 - DYSPHAGIA, UNSPECIFIED Status: Acute Qualifiers: Dysphagia type: oropharyngeal phase Qualified Code(s): R13.12 - Dysphagia, oropharyngeal phase Comment: Plan for EGD in am, NPO currently (4) Stenosis of right carotid artery Code(s): I65.21 - OCCLUSION AND STENOSIS OF RIGHT CAROTID ARTERY Status: Chronic Comment: ASA, Lipitor, Metoprolol, no acute surgical intervention (5) HTN (hypertension) Code(s): I10 - ESSENTIAL (PRIMARY) HYPERTENSION Status: Chronic Qualifiers: Hypertension type: essential hypertension Qualified Code(s): I10 - Essential (primary) hypertension Comment: Labile, Clonidine patch, Hydralazine prn, Metoprolol (6) Pain of left lower extremity Code(s): M79.605 - PAIN IN LEFT LEG Status: Acute Comment: ? etiology, DVT r /o with LE doppler, pain control with Toradol, monitor clinically - Plan PT/OT, transition social worker, speech therapy, respiratory therapy, DVT proph w/SCDs Stable currently -: Plan for PEG insertion and TF's -: NPO currently -: Continue ASA 300mg HI -: Toradol 30mg IV q6h prn * Continue IV NS 100ml/h * AM lab: BMP
--- NOTE | 2018-01-22 20:19 | ULT ---
LEFT LOWER EXTREMITY VENOUS DUPLEX ULTRASOUND INCLUDING COLOR AND SPECTRAL DOPPLER IMAGING: HISTORY: An 87-year-old male with a history of left lower extremity pain and immobility. Exam was limited bec ause the patient was somewhat uncooperative and would not allow evaluation of the popliteal vein [place] use of patient pain. The exam was also limited because of patient motion artifact. TECHNIQUE: Exam performed from groin to ankle, except for the popliteal vein. FINDINGS: The visualized greater saphenous, common femoral, superficial femoral, profunda femoral, trifurcation , and posterior tibial vein regions demonstrate phasic flow at all levels with normal compressibility and normal augmentation. No evidence for deep venous thrombosis. There was incidentally noted with in the left scrotum to be a large, complex, cystic mass, incompletely evaluated on this study. This cystic area measures approximately 4.9 x 8.4 cm, with a separate area that measures 1.6 cm. IMPRESSION: 1. No evidence of left lower extremity deep venous thrombosis. The popliteal vein could not be eval uated because of patient positioning, but the remainder of the deep venous system is normal. 2. Abnormal cystic mass in the left scrotum, possibly a large hydrocele or other cystic mass, with o ne smaller cyst as well. If this is a clinical concern, a follow-up nonemergent complete scrotal ult rasound might be considered. POS: [facility]
[2018-01-22] MEDS: Atorvastatin Calcium 20 MG TAB PO SCH (22:26)
[2018-01-23] MEDS: hydrALAZINE 20 MG/ML VIAL SLOW IVP PRN ×2 (04:39→16:15)
[2018-01-23] MEDS: Sodium Chloride 0.45% 1,000 ML IV SCH ×4 (04:40→18:14)
[2018-01-23] MEDS: Ketorolac Tromethamine 30 MG/ML VIAL IVP PRN ×2 (04:41→22:02)
[2018-01-23] MEDS: Metoprolol Tartrate 25 MG TAB PO SCH (05:49)
[2018-01-23 05:57] LABS: Anion Gap 11 mmol/L (10-20); BUN (Urea Nitrogen) 23 mg/dL (8.4-25.7); Calc. Creatinine Clearance 81 mL/min (70-130); Calcium 8.4 mg/dL (7.8-10.44); Carbon Dioxide 20 mmol/L (23-31); Chloride 109 mmol/L (98-107); Estimated GFR-MDRD Greater than 90; Glucose 88 mg/dL (83-110); Potassium 3.4 mmol/L (3.5-5.1); Sodium 137 mmol/L (136-145)
[2018-01-23] MEDS: Aspirin 325 mg Enteric Coated Tablet PO SCH (07:00)
[2018-01-23] MEDS: Enoxaparin Sodium 30 MG/0.3 ML SYRINGE SC SCH (07:00)
[2018-01-23 08:17] VITALS: BMI 25.0
[2018-01-23] MEDS ORDERED: cloNIDine 0.1mg/24 Hour PATCH TD SCH (09:00)
--- NOTE | 2018-01-23 10:39 | CON ---
DATE OF CONSULTATION: 01/22/2018 REFERRING PHYSICIAN: Dr. Freddie White. REASON FOR CONSULTATION: Evaluate the patient for endoscopic gastrostomy tube placement. HISTORY OF PRESENT ILLNESSES: Mr. Ramesh Troncoso is an 87-year-old male hospitalized with acute CVA and some weakness. The patient is eating very little. The patient was seen in the room al renato with the patient's two daughters. The daughter tells me that when he was feeding very slowly, he is able to swallow, but the intake is very inadequate. At times, he also coughs and chokes during m ealtime. The patient comes for EGD and gastrostomy tube placement. I was asked by Dr. White to see t he patient for possible endoscopic gastrostomy placement. As per the patient's family, he is very [address] of hearing. However, he does respond to questions by mumbling something. I was unable to underst and what he is trying to tell me, but apparently daughter has been communicating with the patient. S ni admission, the patient has been seen by Pulmonary Medicine and Neurology Service. MEDICAL ILLNESSES: 1. Acute CVA. 2. Hypertension. 3. Hyperlipidemia. 4. History of coronary artery disease. ALLERGIES: None. SOCIAL HISTORY: Unobtainable. MEDICATIONS: List reviewed. SURGICAL HISTORY AND FAMILY HISTORY: Not able to be obtained. PHYSICAL EXAMINATION: GENERAL: Reveals a fragile looking elderly male, appears sleepy, but is arousable. He is difficult to understand. VITAL SIGNS: Afebrile, pulse is 82, blood pressure is 189/69. HEENT: Conjunctivae clear. CARDIOVASCULAR: First and second sounds normal. LUNGS: Clear to auscultation. ABDOMEN: Soft to palpate. Abdomen is nondistended. Abdomen is nontender. No organomegaly or mass. He does have a left-sided weakness. LABORATORY DATA: Dated on 01/19/2018 shows WBC 9000, hemoglobin 13.5, hematocrit 38.6, MCV 94.3, [place] count 195,000, polymorphs 81, lymphocytes 12. Serum chemistries shows sodium 140, potassium 3. 7, chloride 113, bicarbonate 19, BUN is 25, creatinine 0.62. CLINICAL IMPRESSION: An 87-year-old with acute cerebrovascular accident, has difficulty sw allowing. The patient's oral intake is very poor. I had a long talk with the patient's daughter and explained the procedure. Apparently, Dr. Vickers has spoken to her, spoken to the family about the EGD and PEG tube placement. The patient and family has been spoken to reguarding procedure in detail and potential risks and benefits. The patient's family is agreeable. I will plan for EGD and PEG t ube placement done tomorrow.
[2018-01-23] MEDS ORDERED: PROPOFOL 200 MG/20 ML VIAL ONE (11:38)
[2018-01-23] MEDS ORDERED: Lidocaine 1% PF 5 ML VIAL ONE (11:38)
[2018-01-23] MEDS ORDERED: CEFAZOLIN/Water 2 GM/20 ML SYRINGE ONE (12:08)
[2018-01-23] MEDS: Aspirin 300 MG Suppository PR SCH (13:36)
--- NOTE | 2018-01-23 14:39 | OP ---
DATE OF PROCEDURE: 01/23/2018 SURGEON: Valeria Orozco M.D. OPERATIVE PROCEDURE: Esophagogastroduodenoscopy with endoscopic gastrostomy tube placement. PREOPERATIVE DIAGNOSIS: Dysphagia, status post cerebrovascular accident. POSTOPERATIVE DIAGNOSES: 1. Hiatal hernia. 2. Ulcer in the duodenal bulb, nonbleeding. 3. Placement of G-tube. PROCEDURE IN DETAIL: The patient was placed on his back and was given sedation by Anesthesia Department. The patient also has IV Ancef 2 grams before the procedure. A bite block was placed. A Pentax video gastroscope under direct vision was passed down the oropharynx, past the GE junction, into the stomach and subsequently descending duodenum. The esophageal mucosa appeared normal. No evidence of lesions seen. The GE junction, no pathology. The fundus, cardia , gastric body, gastric antrum, no pathology seen. The duodenal bulb showed an ulceration measuring approximately 1 cm. The scope was withdrawn back to stomach. The G-tube site was marked by transillumination from within. This was confirmed by finger pressure. The site was surgically prepped and cleaned. This site was anesthetized with 1% Xylocaine infiltration. Over the site, a size 16 Angiocath was advanced into the stomach. Through the Angiocath, a guidewire was advanced into the stomach. The wire was grasped with snare and put outside the mouth. entry, a 0.75-1 cm sized cut was made in the skin and subcutaneous tissue. A gastrostomy tube was connected to the guidewire protruding outside the mouth. The wire was pulled back retrograde and the tube left in place. The patient was rescoped again to confirm proper placement of G- tube. No complications. The stomach was decompressed and the scope removed. RECOMMENDATIONS: 1. NPO.. 2. May start tube feeding later on this evening. MTDD
[2018-01-23] MEDS ORDERED: Metoprolol Tartrate 25 MG TAB PO SCH (17:00)
--- NOTE | 2018-01-23 17:09 | PDOC.PN ---
- Subjective Encounter Start Date: 01/23/18 Encounter Start Time: 16:45 Subjective: f/u R MCA territorial infarct with L hemiparesis, dysphasia and dysphagia. -: PEG tube placed today with TF's to start this pm. - Objective Resuscitation Status: Resuscitation Status DNR:Do Not Resuscitate MAR Reviewed: Yes Vital Signs & Weight: Vital Signs (12 hours) Temp Pulse Resp BP BP Pulse Ox 01/23/18 16:15 92 205/92 H 01/23/18 15:52 98.1 F 92 20 205/92 H 99 01/23/18 08:32 99.1 F 82 18 159/77 H 95 01/23/18 08:00 99.1 F 82 18 Weight Admit Weight 145 lb Weight 164 lb 6.4 oz Most Recent Monitor Data Heart Rate from ECG 83 NIBP 153/100 NIBP BP-Mean 111 Respiration from ECG 26 SpO2 100 I&O: 01/22/18 01/23/18 01/24/18 06:59 06:59 06:59 Intake Total 1250 Balance 1250 Result Diagrams: 01/19/18 04:01 01/23/18 05:02 Radiology Reviewed by me: Yes (LLE sono - no DVT) EKG Reviewed by me: Yes (Tele - SR in 80's) Phys Exam - Physical Examination alert, states a few garbled words HEENT: oral pharynx no lesions Neck: no JVD, supple coarse sounds bilat Cardiovascular: RRR PEG site CDI Gastrointestinal: soft, non-tender, no distention, positive bowel sounds Musculoskeletal: no edema, pulses present L hemiparesis, dysarthria, L facial droop Skin: normal turgor, cap refill <2 seconds Dx/Plan (1) Cerebrovascular accident (CVA) involving right middle cerebral artery territory Code(s): I63.511 - CEREB INFRC D/T UNSP OCCLS OR STENOS OF RIGHT MID CEREB ART Status: Acute Comment: ASA 325mg daily, Lipitor, stroke protocol, s/p tPa (2) Acute left hemiparesis Code(s): G81.94 - HEMIPLEGIA, UNSPECIFIED AFFECTING LEFT NONDOMINANT SIDE Status: Acute Comment: PT/OT for mobilization, likely rehab on d/c (3) Dysphagia Code(s): R13.10 - DYSPHAGIA, UNSPECIFIED Status: Acute Qualifiers: Dysphagia type: oropharyngeal phase Qualified Code(s): R13.12 - Dysphagia, oropharyngeal phase Comment: PEG placed 01/23/18, NPO except Fabian H2O protocol (4) Stenosis of right carotid artery Code(s): I65.21 - OCCLUSION AND STENOSIS OF RIGHT CAROTID ARTERY Status: Chronic Comment: ASA, Lipitor, Metoprolol, no acute surgical intervention (5) HTN (hypertension) Code(s): I10 - ESSENTIAL (PRIMARY) HYPERTENSION Status: Chronic Qualifiers: Hypertension type: essential hypertension Qualified Code(s): I10 - Essential (primary) hypertension Comment: Labile, Clonidine patch, Hydralazine prn, Metoprolol (6) Pain of left lower extremity Code(s): M79.605 - PAIN IN LEFT LEG Status: Acute Comment: suspected contusion, DVT r/o with LE doppler, pain control with Toradol, monitor clinically - Plan plan discussed w/ family, PT/OT, social work manager, speech therapy, respiratory therapy, DVT proph w/SCDs Stable currently -: Start TF's Jevity 1.2 at 10ml/h with goal rate 70ml/h -: Fabian H2O protocol -: Start Protonix 40mg PT daily -: Decrease IVF's 75ml/h * Rehab vs SNF, likely will be a candidate for SNF given clinical deficits currently
--- NOTE | 2018-01-23 21:29 | PRG ---
DATE OF SERVICE: 01/23/2018 SUBJECTIVE: Ramesh Troncoso had a PEG placed today; awakened; and when I evaluated, was able to answe r questions very quickly when he was in the hospital. He is still dysarthric. OBJECTIVE: VITAL SIGNS: He is afebrile, heart rate is 92, respiratory rate is 20, oximetry is 99 on nasal cannu la, blood pressure this morning was 150/77. LUNGS: Clear. HEART: Regular rhythm. ABDOMEN: Soft. He has not had any CBC since the . His hemoglobin was 13.5 at that time. Sodium is 137, potassi um 3.4, chloride 109, bicarbonate 20, BUN 23, creatinine 0.65. IMPRESSION: 1. Status post thrombotic cerebrovascular accident. 2. Status post PEG placement. PLAN: Placement.
[2018-01-23] MEDS: Atorvastatin Calcium 20 MG TAB PO SCH (22:01)
[2018-01-24] MEDS: Ketorolac Tromethamine 30 MG/ML VIAL IVP PRN (02:48)
[2018-01-24 06:04] LABS: Anion Gap 14 mmol/L (10-20); BUN (Urea Nitrogen) 24 mg/dL (8.4-25.7); Calc. Creatinine Clearance 79 mL/min (70-130); Calcium 8.2 mg/dL (7.8-10.44); Carbon Dioxide 19 mmol/L (23-31); Chloride 104 mmol/L (98-107); Estimated GFR-MDRD Greater than 90; Glucose 97 mg/dL (83-110); Phosphorus 3.1 mg/dL (2.3-4.7); Sodium 134 mmol/L (136-145)
[2018-01-24] MEDS ORDERED: Metoprolol Tartrate 25 MG TAB PO SCH (09:00)
[2018-01-24] MEDS ORDERED: Pantoprazole 40 MG GRANULES PACKET PER TUBE SCH (09:00)
[2018-01-24] MEDS: Aspirin 300 MG Suppository PR SCH (09:33)
[2018-01-24] MEDS: Aspirin 325 mg Enteric Coated Tablet PO SCH (09:35)
[2018-01-24] MEDS: Enoxaparin Sodium 30 MG/0.3 ML SYRINGE SC SCH (09:36)
[2018-01-24] MEDS: Sodium Chloride 0.45% 1,000 ML IV SCH (10:04)
[2018-01-24] MEDS ORDERED: Diabetic Tussin 200 MG/10 ML UDCUP PER TUBE PRN (11:15)
[2018-01-24] MEDS ORDERED: Mag-Al 1200 mg/1200 mg/30 ML UDCUP PER TUBE PRN (11:15)
[2018-01-24] MEDS ORDERED: Milk Of Magnesia 30 ML UDCUP PER TUBE PRN (11:15)
[2018-01-24] MEDS ORDERED: Acetaminophen 325 MG TAB PER TUBE PRN (11:15)
[2018-01-24] MEDS ORDERED: Loratadine 10 MG TAB PER TUBE PRN (11:15)
--- NOTE | 2018-01-24 15:09 | EKG ---
Test Reason : STOKE ALERT Blood Pressure : / mmHG Vent. Rate : 074 BPM Atrial Rate : 074 BPM P-R Int : 228 ms QRS Dur : 122 ms QT Int : 456 ms P-R-T Axes : 054 006 -15 degrees QTc Int : 506 ms Sinus rhythm with 1st degree A-V block with occasional Premature ventricular complexes and Premature atrial complexes Non-specific intra-ventricular conduction delay Abnormal ECG Confirmed by RANGEL TURNER D.O. ([id number]), sound editor TODD JEFFRIES ([id number]) on 01/24/2018 3:07:58 PM Referred By: RAQUEL TURNER Confirmed By:RANGEL TURNER D.O.
--- NOTE | 2018-01-24 15:34 | DIS ---
DATE OF ADMISSION: 01/17/2018 DATE OF DISCHARGE: 01/24/2018 DISCHARGE DIAGNOSES: 1. Acute right middle cerebral artery territorial ischemic cerebrovascular accident, status post TPA . 2. Left hemiparesis secondary to #1. 3. Dysphagia secondary to #1. 4. Right carotid artery stenosis, medical management. 5. Hypertension, labile. 6. Left upper extremity contusions. 7. Hypokalemia. CONSULTATIONS: 1. Dr. Crain with Neurosurgical Service. 2. Dr. Somers with Pulmonology Service. 3. Dr. Beverly Kelley with Neurology Service. 4. Dr. Orozco with GI Service. PERTINENT LABORATORY AND X-RAY FINDINGS: Potassium ranged between 3.0 to 3.7, hemoglobin A1c 5.2, ph osphorus ranged between 2.2 to 4.5, magnesium 2.2, AST 66, ALT 23, alkaline phosphatase 52, total cho lesterol 225, triglycerides 50, HDL 60, LDL 155, TSH 2.51. CBC showed a white blood cell count rangi ng between 9.0 to 12.1. Urine drug screen dated 01/16/2018 and 01/17/[address] of the brain without contrast dated 01/16/2018 showed small vessel ischemic changes without acute process. CT an giogram of the head and neck dated 01/16/2018 showed area of occlusion in the proximal right internal carotid artery. No evidence of thrombosis intracranially; however, less prominent vasculature in th e right cerebral hemisphere compared to the left. Perfusion abnormality on the inferior aspect of th e right temporal lobe. This represents an area of ischemia/penumbra. Portable chest x-ray dated showed no acute cardiopulmonary process. A 2D transthoracic echocardiogram dated 01/17/2018 showed ejection fraction of 60% to 65%. Diastolic dysfunction. Premature atrial contractions noted. Moderate to severe left atrial enlargement. CT of the brain without contrast dated 01/19/2018 show ed multifocal infarctions involving the right cerebral hemisphere as well as temporoparietal region o f the right cerebral hemisphere. HOSPITAL COURSE: The patient was admitted to the stroke unit, who initially presented with abrupt on set of dense left hemiparesis and dysarthria. The patient underwent noncontrast head CT imaging nega tive for hemorrhage. The patient had CT angiogram showed area of ischemia with potentially salvageab le brain, initiated on TPA. The patient continued on general stroke protocol and monitored according to his post-TPA management stabilizing in the critical care unit. The patient underwent general str leeanne protocol including 2D transthoracic echocardiogram and carotid study showing right carotid artery stenosis. The patient was placed on aspirin 300 mg per rectum due to dysphagia and concern for aspi ration. The patient was evaluated by the Speech Therapy with recommendations for n.p.o. status due t o high risk for aspiration. After discussions with the family, the patient decided to pursue PEG tub e placement, undergoing the procedure on 01/23/2018. Tube feeds were initiated with Jevity 1.2 with a goal rate of 70 mL per hour. The patient continued to receive general supportive measures includin g physical and occupational therapy. Due to patient's deficits including left hemiparesis, dysphagia and dysarthria, the patient was deemed an appropriate candidate for ongoing inpatient rehabilitation . The patient also received local wound care for left upper extremity abrasions and contusions susta ined prior to admission. I have examined the patient at the time of discharge and discussed with [facility] members and the patient's disposition and discharge planning. The patient and family are agreeab le to pursue inpatient rehabilitation at [facility] on discharge 01/24/2018. DISCHARGE MEDICATIONS: 1. Aspirin 325 mg per PEG tube daily. 2. Lipitor 40 mg per PEG tube daily. 3. Catapres TTS-1 of 0.1 mg transdermally every 7 days. 4. Lovenox 30 mg subcutaneously daily. 5. Metoprolol tartrate 25 mg per PEG tube b.i.d. 6. Protonix 40 mg per PEG tube daily. 7. Klor-Con 40 mEq per PEG tube b.i.d. x2 days. FOLLOWUP: The patient may follow up with his primary care provider, Dr. Richard May, after discharge from [facility]. CONDITION ON DISCHARGE: Fair. ACTIVITY: Ad jordana. DIET: Tube feeds with Jevity 1.2 at 70 mL per hour. Free water flushes 100 mL q.4 hours. Rui simmons protocol. CODE STATUS: DO NOT RESUSCITATE. DISPOSITION: Discharged to [facility] on 01/24/2018. Total time preparing and coordinating discharge is 38 minutes.
[2018-01-24] MEDS: hydrALAZINE 20 MG/ML VIAL SLOW IVP PRN (15:57)
--- NOTE | 2018-01-24 16:18 | PRG ---
DATE OF SERVICE: 01/24/2018 SUBJECTIVE: Mr. Ramesh Troncoso is more alert today. He quickly answers questions and walked in the room. OBJECTIVE: VITAL SIGNS: He is afebrile, heart rate is 71, respiratory rate 21, oximetry is 98 on room air, bloo d pressure 175/95, still having some elevated blood pressures and this morning it was 197/92. LUNGS: Clear. HEART: Regular rhythm. ABDOMEN: Soft. LABORATORY DATA: Sodium 134, potassium 3, chloride 104, bicarbonate 19, BUN 24, creatinine 0.67. IMPRESSION: 1. Thrombotic cerebrovascular accident. 2. Status post PEG. 3. Hypertension, still not adequately controlled. His goal blood pressure should be probably somewh ere between 140 and 170 systolic. He is being evaluated for rehab/detention placement.
[2018-01-24 19:27] VITALS: BP 172/92; TEMP 97.9
[2018-01-24] MEDS ORDERED: Atorvastatin Calcium 20 MG TAB PER TUBE SCH (21:00)
[2018-01-24] MEDS ORDERED: Metoprolol Tartrate 25 MG TAB PER TUBE SCH (21:00)
--- NOTE | 2018-01-25 08:20 | PRG ---
DATE OF SERVICE: 01/24/2018 SUBJECTIVE: This is an 87-year-old hospitalized with acute CVA and dysphagia. The patient underwent EGD and PEG tube placement yesterday. He is on tube feeding. He is tolerating tube feeding well. He is awake and communicative. There is no abdominal pain. OBJECTIVE: VITAL SIGNS: Stable, afebrile. Pulse is 71, blood pressure 177/89. CARDIOVASCULAR SYSTEM: Within normal limits. LUNGS: Within normal limits. ABDOMEN: The G-tube site appears healthy. The G-tube bumper was loosened up_.. RECOMMENDATIONS: Continue tube feeding and advanced the rate to maximum of 65 mL per hour. We will sign off from today and if there are any new problems, please call me back. MTDD
[2018-01-25] MEDS ORDERED: Aspirin 325 MG TAB PER TUBE SCH (09:00)
[2018-01-28] MEDS ORDERED: cloNIDine 0.1mg/24 Hour PATCH TD SCH (09:00)
== END 2018-01-24 20:27 | DRG 61 ==
LOC: ERS 23:05 → CCL 01-17 01:07 → CCU 01-17 01:30 → 2SE 01-19 19:47
PROVIDERS: ADMIT Neurological Surgery; ATTEND Internal Medicine
PROC: 3E03317 Introduction of Other Thrombolytic into Peripheral Vein, Percutaneous Approach (ICD-10-PCS; principal; 2018-01-17)
PROC: B3131ZZ Fluoroscopy of Right Common Carotid Artery using Low Osmolar Contrast (ICD-10-PCS; 2018-01-17)
PROC: 0DH63UZ Insertion of Feeding Device into Stomach, Percutaneous Approach (ICD-10-PCS; 2018-01-23)
PROC: 3E0G76Z Introduction of Nutritional Substance into Upper GI, Via Natural or Artificial Opening (ICD-10-PCS; 2018-01-23)
DX: I65.21 Occlusion and stenosis of right carotid artery; I10 Essential (primary) hypertension; G81.04 Flaccid hemiplegia affecting left nondominant side; I67.82 Cerebral ischemia; Z66 Do not resuscitate; J69.0 Pneumonitis due to inhalation of food and vomit; R53.81 Other malaise; R47.81 Slurred speech; Z86.73 Personal history of transient ischemic attack (TIA), and cerebral infarction without residual deficits; M79.605 Pain in left leg; E87.1 Hypo-osmolality and hyponatremia; E43 Unspecified severe protein-calorie malnutrition; K26.9 Duodenal ulcer, unspecified as acute or chronic, without hemorrhage or perforation; R13.12 Dysphagia, oropharyngeal phase; R47.01 Aphasia; S50.812A Abrasion of left forearm, initial encounter; E78.5 Hyperlipidemia, unspecified; E87.6 Hypokalemia; S50.811A Abrasion of right forearm, initial encounter; R29.810 Facial weakness; I63.9 Cerebral infarction, unspecified; R47.1 Dysarthria and anarthria; K44.9 Diaphragmatic hernia without obstruction or gangrene
CPT/HCPCS: 0042T; 36222; 36415; 36416; 51701; 70450; 70496; 70498; 71045; 80048; 80053; 80061; 80306; 80307; 81003; 82553; 83036; 83090; 83605; 83690; 83735; 84100; 84443; 84484; 85025; 85610; 85730; 86780; 90471; 90682; 93005; 93306; 96365; 96367; 96376; A4216; C1769; G0008; G8978-GP-CN; G8979-GP-CM; G8987-GO-CM; G8988-GO-CK; G8996-GN-CK; G8996-GN-CL; G8997-GN-CJ; J0360; J1644; J1650; J1885; J2001; J2704; J2997; J3480; J7050; Q2036; S0028

== ENCOUNTER 2018-01-30 13:17 | Outpatient (CLI) | payer MEDICARE, OTHER ==
--- NOTE | 2018-01-30 13:52 | RAD ---
FOUR VIEWS LEFT KNEE: COMPARISON: None. HISTORY: Left knee pain. FINDINGS: Four views left knee show no evidence of acute fracture or dislocation. Mild tricompartmental osteop hytes are seen consistent with osteoarthritis. No knee effusion is seen. Dense vascular calcificati ons are seen posterior to the knee. IMPRESSION: Mild left knee osteoarthritis without acute osseous abnormality. POS: [facility]
--- NOTE | 2018-01-30 13:55 | RAD ---
TWO VIEWS LEFT HIP: Comparison: None. History: Left hip pain. FINDINGS: Two views of the left hip shows no evidence of acute fracture or dislocation. No degenerative change is seen in the left hip. Vascular calcifications are seen. IMPRESSION: No significant left hip abnormality. POS: [facility]
== END 2018-01-30 13:18 | disposition home or self-care (01) ==
LOC: RAD 13:17
PROVIDERS: ATTEND Physical Medicine & Rehabilitation
DX: M25.552 Pain in left hip (principal); M17.12 Unilateral primary osteoarthritis, left knee

== ENCOUNTER 2018-03-14 11:55 | Inpatient (IN) | payer MEDICARE, OTHER ==
[2018-03-14 13:33] LABS: #Eosinphils 0.1 thou/uL (0.0-0.7); #Lymphocytes 1.5 thou/uL (1.20-3.40); #Monocytes 0.2 thou/uL (0.11-0.59); #Neutrophils 4.1 thou/uL (1.40-6.50); %Basophils 0.1 % (0.0-1.0); %Lymphocytes 25.1 % (21.0-51.0); %Neutrophils 70.8 % (42.0-75.0); Hemoglobin 11.9 g/dL (14.0-18.0); Mean Corpuscular HGB CONC 34.3 g/dL (32.0-36.0); Mean Corpuscular Hemoglobin 32.5 pg (27.0-31.0); Mean Corpuscular Volume 94.7 fl (80.0-94.0); Mean Platelet Volume 7.3 fL (7.4-10.4); Platelet Count 228 thou/uL (130-400); RBC Distribution Width 13.8 % (11.5-14.5); Red Blood Cell (RBC) Count 3.66 mill/uL (4.70-6.10); White Blood Cell (WBC) Count 5.8 thou/uL (4.8-10.8)
[2018-03-14 13:49] LABS: ALT (SGPT) 30 U/L (8-55); AST (SGOT) 31 U/L (5-34); Albumin 2.8 g/dL (3.4-4.8); Alkaline Phosphatase 96 U/L (40-150); Anion Gap 12 mmol/L (10-20); BUN (Urea Nitrogen) 18 mg/dL (8.4-25.7); Bilirubin, Total 1.1 mg/dL (0.2-1.2); CK (CPK) 63 U/L (30-200); Calc. Creatinine Clearance 0 mL/min (70-130); Calcium 8.4 mg/dL (7.8-10.44); Carbon Dioxide 28 mmol/L (23-31); Chloride 99 mmol/L (98-107); Estimated GFR-MDRD Greater than 90; Globulin 3.1 g/dL (2.4-3.5); Glucose 96 mg/dL (83-110); Protein, Total 5.9 g/dL (5.8-8.1); Sodium 136 mmol/L (136-145)
[2018-03-14 13:54] LABS: CKMB 2.6 ng/mL (0-6.6); Troponin I 0.021 ng/mL (< 0.028)
--- NOTE | 2018-03-14 14:43 | RAD ---
CHEST ONE VIEW: History: Dyspnea. Comparison: 01-21-18 FINDINGS: Cardiac silhouette is magnified by projection. Pulmonary vasculature is unremarkable. Mediastinum is midline with aortic calcification. No lobar consolidation or evidence of pneumothorax. IMPRESSION: Atherosclerosis. No active cardiopulmonary abnormalities are demonstrated. POS: [facility]
[2018-03-14 14:47] LABS: Bilirubin Negative (Negative); Blood, Urine Negative (Negative); Clarity CLOUDY (Clear); Glucose, Urine (Dipstick) Negative (Negative); Leukocyte Large (Negative); Nitrite Negative (Negative); Protein, Urine (Dipstick) Negative (Neg-Trace); Specific Gravity, Urine 1.011 (1.002-1.036)
[2018-03-14 14:51] LABS: Bacteria/HPF Rare-Few HPF (None Seen); Hyaline Casts/LPF 0-3 HYALINE CAST LPF (0-3 Hyaline); Pathc Cast-AUWi Flag 0.29 (0-2.49); RBC/HPF 0-3 HPF (0-3); Squamous Epithelial 0-3 HPF (0-3)
[2018-03-14 14:54] LABS: Yeast-AUWi Flag 97.4 (0-25.0)
[2018-03-14 15:06] LABS: Yeast-All Forms None Seen HPF (None Seen)
[2018-03-14] MEDS ORDERED: Acetaminophen 500 MG TAB ONE (16:27)
[2018-03-14] MEDS ORDERED: hydrALAZINE 20 MG/ML VIAL SLOW IVP PRN (19:37)
[2018-03-14] MEDS ORDERED: Ondansetron ODT 4 MG TAB PO PRN (19:37)
[2018-03-14] MEDS ORDERED: Ondansetron HCl/PF 4 MG/2 ML Vial IVP PRN (19:37)
[2018-03-14] MEDS ORDERED: cloNIDine 0.1 MG TAB PO PRN (19:37)
[2018-03-14] MEDS ORDERED: valACYclovir 500 MG TAB PER TUBE SCH (21:00)
[2018-03-14 21:37] VITALS: BMI 20.8
[2018-03-14] MEDS: Sodium Chloride 0.9% 1,000 ML IV SCH (22:27)
[2018-03-14] MEDS: cefTRIAXone\\ROCEPHIN 2 GM in Sodium Chloride 0.9% 100 ML IVPB SCH (22:33)
[2018-03-14] MEDS: Famotidine 20 MG TAB PER TUBE SCH (22:47)
--- NOTE | 2018-03-15 00:44 | HP ---
DATE OF ADMISSION: 03/15/2018 PRIMARY CARE PHYSICIAN: Dr. Richard May. CHIEF COMPLAINT: Altered mental status. HISTORY OF PRESENT ILLNESS: This is an 87-year-old male who presents to [facility] in transfer from [facility], where patient is a curr ent resident. According to reports and discussion with the emergency room physician in conjunction w ith reports from [facility] staff. Patient exhibited evidence of altered mentation and concern for infectious process such as pneumonia. Patient apparently underwent chest imaging 24 hours prior to this evaluation and was placed on clindamycin for suspected pneumonia. Patient with a known history of panic with a known history of acute right middle cerebral artery territorial CVA status post tPA i n 12/2017. Patient was noted with resultant dysphagia, dysarthria, and left hemiparesis. Patient wa s discharged to inpatient rehabilitation for ongoing stroke protocol and physical therapy. Patient w as also given a PEG tube receiving nutritional support with Jevity 1.5 one-can t.i.d. The patient is unable to provide any coherent history due to severe dysarthria. Patient also with a recent diagnos is of shingles affecting the right upper lateral trunk treated with Valtrex 1 gram t.i.d. No specifi c evidence of fever, chills, or known exposure history other than resident at [facility]. Patient denies any specific pain complaints but does have some residual cough noted as with his prior admission in 12/2017 secondarily to difficulty with secretions after CVA. In the emergency room, patient underwent general evaluation including chest imaging showing no acute in filtrates. Patient did receive Levaquin 750 mg IV x1 dose in addition to Tylenol 1000 mg. Screening metabolic panel was essentially unremarkable except for mild hypokalemia. Due to patient's question able altered mentation, patient was referred to the Hospitalist Service for evaluation. PAST MEDICAL HISTORY: 1. Status post acute right middle cerebral artery territorial ischemic CVA status post tPA 12/2017. 2. Left hemiparesis secondary to #1. 3. Dysphagia secondary to #1. 4. Right carotid artery stenosis, medically managed. 5. Dysarthria secondarily to #1. 6. Hypertension. 7. History of hypokalemia. PAST SURGICAL HISTORY: 1. Status post hernia repair. 2. Status post open reduction and internal fixation with plate of left hand. CURRENT MEDICATIONS: Based on [facility] MAR, 1. Tramadol 50 mg 2 tabs p.o. q.6 hours p.r.n. pain. 2. Acetaminophen 325 mg 2 tabs p.o. q.8 hours p.r.n. 3. Baclofen 10 mg 1 tab p.o. b.i.d. p.r.n. 4. Lipitor 40 mg p.o. at bedtime. 5. Amlodipine 5 mg 1 tab p.o. at bedtime. 6. Metoprolol tartrate 25 mg p.o. b.i.d. 7. Magnesium oxide 400 mg p.o. daily. 8. Aspirin 325 mg 1 tab p.o. daily. 9. Clonidine 0.1 mg patch weekly. 10. Clindamycin 300 mg per PEG tube q.i.d. x10 days. 11. Lactobacillus 1 tab p.o. t.i.d. 12. Valtrex 1 gram p.o. t.i.d. ALLERGIES: No known drug allergies. FAMILY HISTORY: Positive for hypertension. SOCIAL HISTORY: Currently resides at [facility]. No alcohol, tobac co, or illicit drug use. Medical power of corporate attorney is Gladis Carpio, daughter. REVIEW OF SYSTEMS: Unobtainable as patient cannot provide this information due to dysarthria and alt ered mental status. PHYSICAL EXAMINATION: VITAL SIGNS: On admission, blood pressure 127/67, pulse 54, respiratory rate 18, temperature 97.6 de grees Fahrenheit, O2 saturation 100% on room air. GENERAL APPEARANCE: This is an 87-year-old male, alert, oriented, x1-2, pleasant, in no ac [place] distress. HEENT: Pupils are equal, round, and reactive to light and accommodation. Extraocular muscles are in tact. No scleral icterus, no conjunctival injection. Nares patent. OP is clear. Oral mucosa dry a ppearing. NECK: Supple. No cervical adenopathy, no thyromegaly. Right carotid bruit appreciated. Cervical s pine with full active and passive range of motion. CHEST: Scattered rhonchi in the bases bilaterally. Otherwise, clear to auscultation. Transmitted u pper airway sounds noted. CARDIOVASCULAR: S1, S2 without specific murmur, rub, or gallop. ABDOMEN: Rounded, soft with PEG tube in place in the midepigastric region. Bowel sounds are positiv e in all four quadrants. No palpable mass. No rebound or guarding appreciated. EXTREMITIES: Warm and dry with fair turgor. Generalized atrophy noted. Pulses palpable distally at the dorsalis pedis, posterior tibial, and popliteal arteries bilaterally. Capillary refill less bradly n 2 seconds. NEUROLOGIC: Dysarthria noted left hemiparesis. Not observed ambulatory during this exam. Alert and oriented x1-2. SKIN: Large area of crusting and erythema of the right torso extending to the mid back consistent wi th history of herpes zoster. PERTINENT LABORATORY DATA AND X-RAY FINDINGS: Sodium 136, potassium 3.0, chloride 99, CO2 of 28, BUN 18, creatinine 0.74, estimated GFR greater than 90. Lactic acid level 1.4. LFTs within normal limi ts. BNP 112. Albumin 2.8. CBC showed white blood cell count of 5.8, hemoglobin 12, hematocrit 35, MCV 95, platelet count 228. Urinalysis showed large leukocyte esterase with 4-6 wbc's per high power field. Portable chest x-ray dated 03/14/2018 showed no acute cardiopulmonary process. ASSESSMENT AND PLAN: 1. Metabolic encephalopathy. Suspect that given patient's presentation. We will continue supportiv e management. Suspect multifactorial influence given patient's history of cerebrovascular accident a nd multiple comorbid status. Questionable influence of urinary tract infection. See #2 below. 2. Cystitis. Suspected given patient's urinalysis. Continue Rocephin 2 g IV q.24 hours pending fin al urine culture results. 3. Dehydration. Continue intravenous normal saline 100 mL per hour. Assess swallowing function in the a.m. given patient's history of dysphagia. 4. Dysphagia, chronic. We will reassess with speech therapy in the a.m. Continue nutritional suppo rt with PEG tube feeds using Jevity 1.5 1-can t.i.d. 5. Hypokalemia. Continue Klor-Con 20 mEq per PEG tube b.i.d. and repeat potassium level in the a.m. 6. Herpes zoster. Continue Valtrex 2 grams per PEG tube t.i.d. General contact precautions. 7. History of cerebrovascular accident with left hemiparesis. Continue supportive management. Resu me aspirin 325 mg daily. 8. Prophylaxis. Sequential compression devices while in bed. Pepcid 20 mg per PEG tube b.i.d. Spe ech therapy evaluation in the a.m. 9. Code status is DO NOT RESUSCITATE, confirmed with family and [facility] and out of hospital rec ords. Medical power of corporate attorney, patient's daughter, Gladis Carpio.
[2018-03-15 04:55] LABS: Anion Gap 14 mmol/L (10-20); BUN (Urea Nitrogen) 17 mg/dL (8.4-25.7); Calc. Creatinine Clearance 67 mL/min (70-130); Calcium 8.5 mg/dL (7.8-10.44); Carbon Dioxide 24 mmol/L (23-31); Chloride 101 mmol/L (98-107); Estimated GFR-MDRD Greater than 90; Glucose 71 mg/dL (83-110); Sodium 136 mmol/L (136-145)
[2018-03-15 04:59] LABS: Potassium 2.9 mmol/L (3.5-5.1)
[2018-03-15] MEDS: Sodium Chloride 0.9% 1,000 ML IV SCH ×3 (05:51→15:34)
[2018-03-15 06:06] LABS: Band 5 % (5-11); Eosinophils 2 % (0-10); Hemoglobin 12.2 g/dL (14.0-18.0); Lymphocytes 31 % (21-51); MDiff Complete? YES; Mean Corpuscular HGB CONC 34.6 g/dL (32.0-36.0); Mean Corpuscular Hemoglobin 33.2 pg (27.0-31.0); Mean Corpuscular Volume 95.9 fl (80.0-94.0); Mean Platelet Volume 7.5 fL (7.4-10.4); Monocytes 1 % (0-10); Neutrophil 61 % (42-75); Platelet Count 231 thou/uL (130-400); RBC Distribution Width 13.7 % (11.5-14.5); Red Blood Cell (RBC) Count 3.66 mill/uL (4.70-6.10); White Blood Cell (WBC) Count 6.2 thou/uL (4.8-10.8)
[2018-03-15] MEDS ORDERED: Prevnar 13-Val Conj/PF 0.5 ML SYRINGE IM ONE (09:00)
[2018-03-15] MEDS ORDERED: valACYclovir 500 MG TAB PER TUBE SCH (09:00)
[2018-03-15] MEDS: Famotidine 20 MG TAB PER TUBE SCH ×2 (09:03→20:06)
[2018-03-15] MEDS: Acetaminophen 500 MG TAB PO PRN ×2 (09:03→18:01)
[2018-03-15] MEDS: valACYclovir 500 MG TAB PER TUBE SCH ×3 (10:16→20:05)
--- NOTE | 2018-03-15 13:41 | PDOC.PN ---
- Subjective Encounter Start Date: 03/15/18 Encounter Start Time: 13:30 Subjective: f/u for AMS of unclear etiology and dysphagia(chronic). Empiric IV Rocephin -: and IVF's. ERECTOR OPERATOR recommending pureed with nectar thick liquids. Daughter -: reports pt more alert and responsive. - Objective Resuscitation Status: Resuscitation Status DNR:Do Not Resuscitate MAR Reviewed: Yes Vital Signs & Weight: Vital Signs (12 hours) Temp Pulse Resp BP Pulse Ox 03/15/18 12:05 98.7 F 73 16 120/75 94 L 03/15/18 08:00 98.6 F 73 20 151/75 H 95 03/15/18 05:51 98.0 F 75 22 H 115/69 92 L Weight Weight 145 lb 5 oz I&O: 03/14/18 03/15/18 03/16/18 06:59 06:59 06:59 Intake Total 1060 500 Balance 1060 500 Result Diagrams: 03/15/18 03:26 03/15/18 03:26 Additional Labs: Microbiology 03/14/18 14:20 Urine Straight Catheter Urine Culture - Preliminary NO GROWTH AT 24 HOURS 03/14/18 13:13 Venous blood - Right Arm Blood Culture - Preliminary Specimen has been received and culture in progress. No Growth to date. 03/14/18 13:07 Venous blood - Right Arm Blood Culture - Preliminary Specimen has been received and culture in progress. No Growth to date. Laboratory Tests 03/14/18 03/14/18 03/15/18 13:19 13:19 03:26 Hgb 11.9 L Neutrophils % 70.8 Neutrophils % (Manual) 61 Potassium 3.0 L Phys Exam - Physical Examination Constitutional: NAD HEENT: PERRLA, moist MMs, sclera anicteric, oral pharynx no lesions Neck: no nodes, no JVD, supple, full ROM few scattered rhonchi and transmitted upper airway sounds Respiratory: no wheezing, no rales Cardiovascular: RRR, no significant murmur, no rub, gallop PEG tube in place Gastrointestinal: soft, non-tender, no distention, positive bowel sounds Musculoskeletal: no edema, pulses present L hemiparesis(chronic), dysarthria and dysphasia Neurological: moves all 4 limbs A x O x 2 Skin: no rash, normal turgor, cap refill <2 seconds Dx/Plan (1) Acute metabolic encephalopathy Code(s): G93.41 - METABOLIC ENCEPHALOPATHY Status: Acute Comment: Improved wtih supportive measures, likely multifactorial including dehydration, electrolyte disturbance and cystitis (2) Cystitis Code(s): N30.90 - CYSTITIS, UNSPECIFIED WITHOUT HEMATURIA Status: Acute Comment: Suspected, continue Rocephin IV another 24h pending final Ucx results (3) Dehydration Code(s): E86.0 - DEHYDRATION Status: Acute Comment: Improved, continue IVF NS @ 75ml/h x 24h then saline lock (4) Hypokalemia Code(s): E87.6 - HYPOKALEMIA Status: Acute Comment: Change KCL 40meq TID, repeat K+ level in am (5) Cerebrovascular accident (CVA) involving right middle cerebral artery territory Code(s): I63.511 - CEREB INFRC D/T UNSP OCCLS OR STENOS OF RIGHT MID CEREB ART Status: Acute Comment: ASA 325mg daily, Lipitor (6) Dysphagia Code(s): R13.10 - DYSPHAGIA, UNSPECIFIED Status: Acute Qualifiers: Dysphagia type: oropharyngeal phase Qualified Code(s): R13.12 - Dysphagia, oropharyngeal phase Comment: PEG placed 01/23/18 but taking po with nectar thick liquids and pureed textures, holding TF's (7) HTN (hypertension) Code(s): I10 - ESSENTIAL (PRIMARY) HYPERTENSION Status: Chronic Qualifiers: Hypertension type: essential hypertension Qualified Code(s): I10 - Essential (primary) hypertension Comment: Stable, resume home Metoprolol, Amlodipine, serial monitoring (8) Herpes zoster Code(s): B02.9 - ZOSTER WITHOUT COMPLICATIONS Status: Acute Comment: Continue Valtrex 1gm TID, contact precautions - Plan plan discussed w/ family, continue antibiotics, PT/OT, home health care social worker, speech therapy, DVT proph w/SCDs Stable overall -: Decrease IVF 75ml/h -: Increase KCL 40meq TID -: Pureed and [place] thick diet -: Continue Rocephin 2gm IV daily * Monitor Ucx/Blood cx final results * AM lab: BMP * Convert to inpt status
[2018-03-15] MEDS: Lactinex Tablet PER TUBE SCH ×2 (16:18→20:06)
[2018-03-15] MEDS: cefTRIAXone\\ROCEPHIN 2 GM in Sodium Chloride 0.9% 100 ML IVPB SCH (20:05)
[2018-03-15] MEDS: Apixaban 5 MG TAB PER TUBE SCH (20:06)
[2018-03-15] MEDS: Metoprolol Tartrate 25 MG TAB PER TUBE SCH (20:07)
[2018-03-15] MEDS ORDERED: Amlodipine 5 MG TAB PER TUBE SCH (21:00)
[2018-03-15] MEDS ORDERED: Atorvastatin Calcium 40 MG TAB PER TUBE SCH (21:00)
[2018-03-16 04:29] LABS: Anion Gap 9 mmol/L (10-20); BUN (Urea Nitrogen) 13 mg/dL (8.4-25.7); Calc. Creatinine Clearance 74 mL/min (70-130); Calcium 8.1 mg/dL (7.8-10.44); Carbon Dioxide 22 mmol/L (23-31); Chloride 107 mmol/L (98-107); Estimated GFR-MDRD Greater than 90; Glucose 86 mg/dL (83-110); Potassium 3.4 mmol/L (3.5-5.1); Sodium 135 mmol/L (136-145)
[2018-03-16] MEDS: Lactinex Tablet PER TUBE SCH (08:54)
[2018-03-16] MEDS: Sodium Chloride 0.9% 1,000 ML IV SCH (08:54)
[2018-03-16] MEDS: Apixaban 5 MG TAB PER TUBE SCH (08:55)
[2018-03-16] MEDS: Famotidine 20 MG TAB PER TUBE SCH (08:55)
[2018-03-16] MEDS: Metoprolol Tartrate 25 MG TAB PER TUBE SCH (08:56)
[2018-03-16] MEDS: Acetaminophen 500 MG TAB PO PRN (08:56)
[2018-03-16] MEDS ORDERED: Aspirin 325 MG TAB PER TUBE SCH (09:00)
[2018-03-16] MEDS ORDERED: Ubidecarenone 50 MG CAP PER TUBE SCH (09:00)
[2018-03-16] MEDS: valACYclovir 500 MG TAB PER TUBE SCH (09:01)
[2018-03-16 11:33] VITALS: BP 178/79; TEMP 98.4
--- NOTE | 2018-03-16 13:24 | DIS ---
DATE OF ADMISSION: 03/15/2018 DATE OF DISCHARGE: 03/16/2018 PRIMARY CARE PHYSICIAN: Out of town. DISCHARGE DIAGNOSES: 1. Acute cystitis, Viridans Streptococci. 2. Metabolic encephalopathy. 3. Dehydration. 4. Hypokalemia. 5. History of stroke in the past. 6. Oropharyngeal dysphagia secondary to stroke. 7. Essential hypertension, chronic. 8. Recent diagnosis of zoster without complications. CONSULTATIONS: None. PROCEDURES: None. HISTORY AND PHYSICAL: Mr. Troncoso is an 87-year-old gentleman from [facility] who was transferred to our facility for altered mental status. The patient has been in [facility] getting therapy after a stroke, having dysphagia where he receives tube feeds PT, OT julia bolden ST. The patient was worked on the emergency department and found to have a urinary tract infection, abnor mal white blood cell count, had a potassium of 3.0. He was placed on inpatient status and started on Rocephin. However on 03/14 to 03/15, blood counts remained normal. His potassium was largely unchanged at 2.9, so that was aggressively replaced. Lactic acid from the day before 1.4 was not rechecked. The patient was more awake and alert and able to work with rehab some, but not back to his baseline, but today on 03/16/2018, was sleepy, but arousable. It took him a minute to wake up, but once he did , he was oriented x3. Potassium is 3.4, he is otherwise stable for return to [facility] t o continue his rehabilitation. PHYSICAL EXAMINATION: The patient was seen and examined on the day of discharge. Discharge plan and disposition was discussed with the patient [id number] at the bedside. DISCHARGE MEDICATIONS: New medications, 1. Keflex 500 mg p.o. q.i.d. for 7 days, actually per G-tube for 7 days. 2. Amlodipine 5 mg daily. 3. Eliquis 5 mg b.i.d. 4. Aspirin 325 mg daily. 5. Lipitor 40 mg at bedtime. 6. Baclofen 10 mg t.i.d. p.r.n. 7. Clonidine TTS 1 patch, change every 7 days. 8. Lactobacillus 1 tablet per tube t.i.d. 9. Metoprolol tartrate 25 mg b.i.d. 10. CoQ10 100 mg daily. 11. Clindamycin 300 mg per tube q.6 hours for 10 days starting on 03/13/2018 and his other p.r.n. me dicines as from admission. 12. Valacyclovir 1000 mg per tube t.i.d. for 7 days to complete his course. FOLLOWUP APPOINTMENTS: Primary care physician within a week. DISCHARGE CONDITION: Stable. DISPOSITION: Being discharged back to [facility] for PT, OT, and ST. DISCHARGE ACTIVITY: Per cardiopulmonary limits. DISCHARGE DIET: Heart healthy. Tube feed recommended to be continued.
--- NOTE | 2018-03-21 13:12 | EKG ---
Test Reason : Blood Pressure : / mmHG Vent. Rate : 062 BPM Atrial Rate : 062 BPM P-R Int : 234 ms QRS Dur : 148 ms QT Int : 504 ms P-R-T Axes : 000 -18 -35 degrees QTc Int : 511 ms Sinus rhythm with 1st degree A-V block with Premature atrial complexes Right bundle branch block Inferior infarct , age undetermined T wave abnormality, consider lateral ischemia Abnormal ECG Confirmed by SANTOSH PEREZ ([id number]), video news editor TODD JEFFRIES ([id number]) on 03/21/2018 1:11:47 PM Referred By: Confirmed By:SANTOSH PEREZ
[2018-03-22] MEDS ORDERED: cloNIDine 0.1mg/24 Hour PATCH TD SCH (09:00)
== END 2018-03-16 13:39 | DRG 689 ==
LOC: ERS 11:55 → T4-A 17:59 → OBSVTOIN 03-15 13:54
PROVIDERS: ADMIT Family Medicine; ATTEND Family Medicine
DX: N30.90 Cystitis, unspecified without hematuria (principal); G93.41 Metabolic encephalopathy; I69.354 Hemiplegia and hemiparesis following cerebral infarction affecting left non-dominant side; E86.0 Dehydration; B95.4 Other streptococcus as the cause of diseases classified elsewhere; I69.391 Dysphagia following cerebral infarction; R13.12 Dysphagia, oropharyngeal phase; I69.322 Dysarthria following cerebral infarction; I10 Essential (primary) hypertension; E87.6 Hypokalemia; I65.21 Occlusion and stenosis of right carotid artery; Z79.899 Other long term (current) drug therapy
CPT/HCPCS: 36415; 51701; 71045; 80048; 80053; 81003; 81015; 82553; 83605; 83880; 84484; 85007; 85025; 85027; 87040; 87086; 90471; 90670; 93005; 96365; G0009; G8996-GN-CL; G8997-GN-CK; J0696; J1956; J7050